=== PATIENT | female | born 1990 | race Caucasian/White ===

== ENCOUNTER 2016-05-12 11:04 | Emergency (ER) | payer OTHER, SELFPAY ==
--- NOTE | 2016-05-12 12:26 | EDDOCDS ---
Nurse's Notes [facility] Name: Virginia Pandey Age: 25 yrs Sex: Female : 1990 Arrival Date: 05/12/2016 Time: 11:04 Bed D1 Private MD: No Pcp Diagnosis: Acute frontal sinusitis Presentation: 05/12 11:18 Presenting complaint: Patient states: cough, cold, sore throat, headache since Friday. rs3 has not taken any medication. Adult Sepsis Screening: The patient does not have new or worsening altered mentation. Patient's respiratory rate is less than 22. Systolic blood pressure is greater than 100. Patient has a qSOFA score of 0- Negative Sepsis Screen. Suicide/Homicide risk assessment- the patient denies having any suicidal and/or homicidal ideations and does not present with any other emotional, behavioral or mental health complaints. 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 Transition of care: patient was not received from another setting of care. 11:18 Acuity: DEAN Level 4 rs3 11:18 Method Of Arrival: Walkin/Carried/Asstd rs3 Triage Assessment: 11:22 General: Appears in no apparent distress. Pain: Location: headache, sore throat. 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 risperidone 1 mg oral tab 1 tab once daily 3 weeks ago - PMHx: ADHD; - PSHx: none; - Social history: Smoking status: Patient states was never smoker of tobacco. No barriers to communication noted, The patient speaks fluent Zambian. - Family history: Not pertinent. - : The pt / caregiver states he / she is not on anticoagulants. Home medication list is obtained from the patient. - Exposure Risk Screening:: None identified. Screenin:22 Screening information is obtained from the patient. Fall risk: No risks identified. ms18 Assistance ADL's: requires no assistance with activities of daily living. Abuse/DV Screen: The patient / caregiver reports he/she is: not in a situation that causes fear, pain or injury. Nutritional screening: No deficits noted. Advance Directives: There is no living will. home support is adequate. Assessment: 12:22 General: Appears in no apparent distress, comfortable, Behavior is appropriate for age, ms18 cooperative. Pain: Noted to be pt sitting comfortably on a chair at this time. Neurological: Level of Consciousness is awake, alert, obeys commands, Oriented to person, place, time. EENT: Reports nasal congestion. Respiratory: Airway is patent Respiratory effort is even, unlabored. GI: Abdomen is non- distended. Derm: Skin is pink, warm & dry. Vital Signs: 11:07 BP 135 / 72 RA Sitting (auto/reg); Pulse 90; Resp 18; Temp 98.8(O); Pulse Ox 97% ; jrd Weight 87.54 kg; Height 5 ft. 6 in. (167.64 cm); Pain 8/10; 11:07 Body Mass Index 31.15 (87.54 kg, 167.64 cm) [facility] Vitals: 11:07 Log In Time: May 12, 2016 at 10:43. [facility] ED Course: 11:06 Patient visited by Balbir Child PCA. jrd 11:06 Patient moved to Waiting jrd 11:07 No Pcp is Private Physician. jrd 11:08 Patient visited by Balbir Child PCA. jrd 11:08 Patient moved to Pre RCE jrd 11:20 Triage Initiated rs3 11:54 Patient moved to D1 ms18 12:00 Young Machado PA-C is PHCP. cc10 12:00 Phoebe Swanson MD is Attending Physician. cc10 12:00 Patient visited by Young Machado PA-C. cc10 12:00 Patient visited by Young Machado PA-C. cc10 12:22 Patient visited by Cathie Hwang RN. ms18 12:22 The patient / caregiver is instructed regarding the plan of care and ED course. Patient ms18 has correct armband on for positive identification. Property :Personal belongings accompany Pt. 12:22 No IV's were initiated during this patient's visit. No procedures done that require ms18 assistance. Order Results: There are currently no results for this order. Outcome: 12:15 Discharge ordered by Provider. cc10 12:22 Discharge Assessment: Patient awake, alert and oriented x 3. No cognitive and/or ms18 functional deficits noted. Patient verbalized understanding of disposition instructions. patient administered narcotics - no. The following High Risk Discharge criteria are identified: None. Discharged to home ambulatory. Condition: good Condition: stable. Discharge instructions given to patient, Instructed on discharge instructions, follow up and referral plans. medication usage, Demonstrated understanding of instructions, medications, Pt was receptive of discharge instructions/ teaching. Prescriptions given X 3. No special radiology studies were completed. 12:25 Patient left the ED. ms18 Signatures: Yashira JallohRN RN rs3 Young Machado, PA-C PA-C cc10 Cathie Hwang RN RN ms18 Balbir Child, SALVATORE STRAIGHTENING MACHINE OPERATOR jrd MTDD
--- NOTE | 2016-05-12 12:26 | EDDOCDS ---
Physician Documentation [facility] Name: Virginia Pandey Age: 25 yrs Sex: Female : 1990 Arrival Date: 05/12/2016 Time: 11:04 Bed D1 Private MD: No Pcp Disposition: 05/12/16 12:15 Discharged to Home/Self Care. Impression: Acute frontal sinusitis. - Condition is Stable. - Discharge Instructions: Sinus Headache. - Prescriptions for Augmentin 875- 125 mg Oral Tablet - take 1 tablet by ORAL route every 12 hours for 10 days; 20 tablet. Prednisone 20 mg Oral Tablet - take 1 tablet by ORAL route once daily for 5 days; 5 tablet. Afrin (oxymetazoline) 0.05 % Nasal Aerosol, [place] - spray 2 sprays by INTRANASAL route 2 times per day use for 5 days ONLY; 1 Container. - Medication Reconciliation form. - Follow up: Emergency Department; When: As needed. Follow up: Private Physician; When: Call to arrange an appointment; Reason: Wound/Symptom Recheck, Recheck today's complaints, Worsening of conditions, Continuance of care. - Problem is an ongoing problem. - Symptoms are unchanged. Historical: - Allergies: no known allergies; - Home Meds: 1. risperidone 1 mg oral tab 1 tab once daily 3 weeks ago - PMHx: ADHD; - PSHx: none; - Social history: Smoking status: Patient states was never smoker of tobacco. No barriers to communication noted, The patient speaks fluent Monegasque. - Family history: Not pertinent. - : The pt / caregiver states he / she is not on anticoagulants. Home medication list is obtained from the patient. - Exposure Risk Screening:: None identified. 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 6 in. (167.64 cm); Pain 8/10; 11:07 Body Mass Index 31.15 (87.54 kg, 167.64 cm) jrd Signatures: Yashira Jalloh RN RN rs3 [place], Young, PA-C PA-C cc10 Cathie Hwang,RN RN ms18 MTDD
--- NOTE | 2016-05-14 13:27 | EDDOCDS ---
Nurse's Notes [facility] Name: Virginia Pandey Age: 25 yrs Sex: Female : 1990 Arrival Date: 05/12/2016 Time: 11:04 Bed D1 Private MD: No Pcp Diagnosis: Acute frontal sinusitis Presentation: 05/12 11:18 Presenting complaint: Patient states: cough, cold, sore throat, headache since Friday. rs3 has not taken any medication. Adult Sepsis Screening: The patient does not have new or worsening altered mentation. Patient's respiratory rate is less than 22. Systolic blood pressure is greater than 100. Patient has a qSOFA score of 0- Negative Sepsis Screen. Suicide/Homicide risk assessment- the patient denies having any suicidal and/or homicidal ideations and does not present with any other emotional, behavioral or mental health complaints. 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 Transition of care: patient was not received from another setting of care. 11:18 Acuity: DEAN Level 4 rs3 11:18 Method Of Arrival: Walkin/Carried/Asstd rs3 Triage Assessment: 11:22 General: Appears in no apparent distress. Pain: Location: headache, sore throat. 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 risperidone 1 mg oral tab 1 tab once daily 3 weeks ago - PMHx: ADHD; - PSHx: none; - Social history: Smoking status: Patient states was never smoker of tobacco. No barriers to communication noted, The patient speaks fluent [place]. - Family history: Not pertinent. - : The pt / caregiver states he / she is not on anticoagulants. Home medication list is obtained from the patient. - Exposure Risk Screening:: None identified. Screenin:22 Screening information is obtained from the patient. Fall risk: No risks identified. ms18 Assistance ADL's: requires no assistance with activities of daily living. Abuse/DV Screen: The patient / caregiver reports he/she is: not in a situation that causes fear, pain or injury. Nutritional screening: No deficits noted. Advance Directives: There is no living will. home support is adequate. Assessment: 12:22 General: Appears in no apparent distress, comfortable, Behavior is appropriate for age, ms18 cooperative. Pain: Noted to be pt sitting comfortably on a chair at this time. Neurological: Level of Consciousness is awake, alert, obeys commands, Oriented to person, place, time. EENT: Reports nasal congestion. Respiratory: Airway is patent Respiratory effort is even, unlabored. GI: Abdomen is non- distended. Derm: Skin is pink, warm & dry. Vital Signs: 11:07 BP 135 / 72 RA Sitting (auto/reg); Pulse 90; Resp 18; Temp 98.8(O); Pulse Ox 97% ; jrd Weight 87.54 kg; Height 5 ft. 6 in. (167.64 cm); Pain 8/10; 11:07 Body Mass Index 31.15 (87.54 kg, 167.64 cm) [facility] Vitals: 11:07 Log In Time: May 12, 2016 at 10:43. [facility] ED Course: 11:06 Patient visited by Balbir Child PCA. jrd 11:06 Patient moved to Waiting jrd 11:07 No Pcp is Private Physician. jrd 11:08 Patient visited by Balbir Child PCA. jrd 11:08 Patient moved to Pre RCE jrd 11:20 Triage Initiated rs3 11:54 Patient moved to D1 ms18 12:00 Young Machado PA-C is PHCP. cc10 12:00 Phoebe Swanson MD is Attending Physician. cc10 12:00 Patient visited by Young Machado PA-C. cc10 12:00 Patient visited by Young Machado PA-C. cc10 12:22 Patient visited by Cathie Hwang RN. ms18 12:22 The patient / caregiver is instructed regarding the plan of care and ED course. Patient ms18 has correct armband on for positive identification. Property :Personal belongings accompany Pt. 12:22 No IV's were initiated during this patient's visit. No procedures done that require ms18 assistance. 15:22 [facility] Payment Agreement was scanned into [employer] and attached to record. jp5 20:46 T-Sheet-- Draft Copy was scanned into [employer] and attached to record. klr Order Results: There are currently no results for this order. Outcome: 12:15 Discharge ordered by Provider. cc10 12:22 Discharge Assessment: Patient awake, alert and oriented x 3. No cognitive and/or ms18 functional deficits noted. Patient verbalized understanding of disposition instructions. patient administered narcotics - no. The following High Risk Discharge criteria are identified: None. Discharged to home ambulatory. Condition: good Condition: stable. Discharge instructions given to patient, Instructed on discharge instructions, follow up and referral plans. medication usage, Demonstrated understanding of instructions, medications, Pt was receptive of discharge instructions/ teaching. Prescriptions given X 3. No special radiology studies were completed. 12:25 Patient left the ED. ms18 Signatures: Yashira Jalloh,RN RN rs3 Young Machado, PA-C PA-C cc10 Cathie Hwang RN RN ms18 Balbir Child, PHOTO MANAGER PHOTO MANAGER Kin Machado jp5 Ya Brown Chart Complete MTDCaio
--- NOTE | 2016-05-14 13:27 | EDDOCDS ---
Physician Documentation [facility] Name: Virginia Pandey Age: 25 yrs Sex: Female : 1990 Arrival Date: 05/12/2016 Time: 11:04 Bed D1 Private MD: No Pcp Disposition: 05/12/16 12:15 Discharged to Home/Self Care. Impression: Acute frontal sinusitis. - Condition is Stable. - Discharge Instructions: Sinus Headache. - Prescriptions for Augmentin 875- 125 mg Oral Tablet - take 1 tablet by ORAL route every 12 hours for 10 days; 20 tablet. Prednisone 20 mg Oral Tablet - take 1 tablet by ORAL route once daily for 5 days; 5 tablet. Afrin (oxymetazoline) 0.05 % Nasal Aerosol, [place] - spray 2 sprays by INTRANASAL route 2 times per day use for 5 days ONLY; 1 Container. - Medication Reconciliation form. - Follow up: Emergency Department; When: As needed. Follow up: Private Physician; When: Call to arrange an appointment; Reason: Wound/Symptom Recheck, Recheck today's complaints, Worsening of conditions, Continuance of care. - Problem is an ongoing problem. - Symptoms are unchanged. Historical: - Allergies: no known allergies; - Home Meds: 1. risperidone 1 mg oral tab 1 tab once daily 3 weeks ago - PMHx: ADHD; - PSHx: none; - Social history: Smoking status: Patient states was never smoker of tobacco. No barriers to communication noted, The patient speaks fluent [place]guillan. - Family history: Not pertinent. - : The pt / caregiver states he / she is not on anticoagulants. Home medication list is obtained from the patient. - Exposure Risk Screening:: None identified. 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 6 in. (167.64 cm); Pain 8/10; 11:07 Body Mass Index 31.15 (87.54 kg, 167.64 cm) jrd MDM: 15:22 [facility] Payment Agreement was scanned into [employer] and attached to record. jp5 15:22 Financial registration complete. jp5 20:46 T-Sheet-- Draft Copy was scanned into [employer] and attached to record. klr Signatures: Yashira JallohRN RN rs3 Young Machado, AALIYAHC PAMukeshC cc10 Cathie Hwang RN RN ms18 VargheseYvetteugo jp5 Ya Brown klr The chart was reviewed and I authenticate all verbal orders and agree with the evaluation and treatment provided.Attachments: 15:22 [facility] Payment Agreement jp5 20:46 T-Sheet-- Draft Copy klr Chart Complete MTDD
--- NOTE | 2016-05-14 13:27 | EDDOCDS ---
Physician Documentation [facility] Name: Virginia Pandey Age: 25 yrs Sex: Female : 1990 Arrival Date: 05/12/2016 Time: 11:04 Bed D1 Private MD: No Pcp Disposition: 05/12/16 12:15 Discharged to Home/Self Care. Impression: Acute frontal sinusitis. - Condition is Stable. - Discharge Instructions: Sinus Headache. - Prescriptions for Augmentin 875- 125 mg Oral Tablet - take 1 tablet by ORAL route every 12 hours for 10 days; 20 tablet. Prednisone 20 mg Oral Tablet - take 1 tablet by ORAL route once daily for 5 days; 5 tablet. Afrin (oxymetazoline) 0.05 % Nasal Aerosol, [place] - spray 2 sprays by INTRANASAL route 2 times per day use for 5 days ONLY; 1 Container. - Medication Reconciliation form. - Follow up: Emergency Department; When: As needed. Follow up: Private Physician; When: Call to arrange an appointment; Reason: Wound/Symptom Recheck, Recheck today's complaints, Worsening of conditions, Continuance of care. - Problem is an ongoing problem. - Symptoms are unchanged. Historical: - Allergies: no known allergies; - Home Meds: 1. risperidone 1 mg oral tab 1 tab once daily 3 weeks ago - PMHx: ADHD; - PSHx: none; - Social history: Smoking status: Patient states was never smoker of tobacco. No barriers to communication noted, The patient speaks fluent [place]. - Family history: Not pertinent. - : The pt / caregiver states he / she is not on anticoagulants. Home medication list is obtained from the patient. - Exposure Risk Screening:: None identified. 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 6 in. (167.64 cm); Pain 8/10; 11:07 Body Mass Index 31.15 (87.54 kg, 167.64 cm) jrd MDM: 15:22 [facility] Payment Agreement was scanned into [employer] and attached to record. jp5 15:22 Financial registration complete. jp5 20:46 T-Sheet-- Draft Copy was scanned into [employer] and attached to record. klr Signatures: Yashira JallohRN RN rs3 Young Machado, AALIYAHC PAMukeshC cc10 Cathie Hwang RN RN ms18 VargheseYvetteugo jp5 Ya Brown klr The chart was reviewed and I authenticate all verbal orders and agree with the evaluation and treatment provided.Attachments: 15:22 [facility] Payment Agreement jp5 20:46 T-Sheet-- Draft Copy klr Chart Complete MTDD
== END 2016-05-12 12:25 | disposition home or self-care (01) ==
LOC: M ED 11:04
DX: J01.90 Acute sinusitis, unspecified (principal); H92.03 Otalgia, bilateral; F90.9 Attention-deficit hyperactivity disorder, unspecified type

== ENCOUNTER 2017-03-29 10:40 | Emergency (ER) | payer OTHER ==
[~2017-03-29] VITALS: Ht 165.1 cm; Wt 84.1 kg
[2017-03-29 10:40] VITALS: BP 127/75
[2017-03-29] MEDS ORDERED: ZITHTAB PO (11:21)
[2017-03-29] MEDS ORDERED: TESS100C PO (11:21)
== END 2017-03-29 11:33 | disposition home or self-care (01) ==
LOC: M ED 10:40
DX: J20.9 Acute bronchitis, unspecified (principal); F99 Mental disorder, not otherwise specified

== ENCOUNTER → 2017-05-16 | Outpatient (CLI) | payer OTHER ==
[2017-05-16 10:45] LABS: BASO # 0.1 10^3/uL (0.0-0.2); EOS % 0.8 % (0.0-3.0); HEMATOCRIT 31.8 % (36.0-47.0); HEMOGLOBIN 8.9 g/dl (12.0-16.0); IMMATURE GRANULOCYTE % 0.2 % (0-0); LYMPH # 1.7 10^3/uL (1.5-6.5); LYMPH % 31.9 % (24.0-44.0); MEAN CORPUSCULAR HEMOGLOBIN 19.9 pg (27.0-33.0); MEAN CORPUSCULAR VOLUME 71.1 fl (80.0-96.0); MONO # 0.5 10^3/uL (0.0-0.8); MONO % 10.3 % (0.0-5.0); NEUTROPHILS # 2.9 10^3/uL (1.8-7.7); NEUTROPHILS % 55.8 % (36.0-66.0); PLATELET COUNT, AUTOMATED 338 10^3/uL (150-450); RED BLOOD COUNT 4.47 10^6/uL (4.00-5.40); RED CELL DISTRIBUTION WIDTH 17.6 % (11.5-14.5); WHITE BLOOD COUNT 5.2 10^3/uL (4.0-10.0)
[2017-05-16 10:57] LABS: ESTIMATED AVERAGE GLUCOSE 105 MG/DL (60-110); HEMOGLOBIN A1c 5.3 %
[2017-05-16 11:16] LABS: ALBUMIN 4.6 GM/DL (3.2-5.2); ALBUMIN/GLOBULIN RATIO 1.18 (1.00-1.93); ALKALINE PHOSPHATASE 78 U/L (45-117); ALT/SGPT 14 U/L (12-78); ANION GAP 6 MEQ/L (8-16); AST/SGOT 14 U/L (7-37); BILIRUBIN,TOTAL 0.5 MG/DL (0.2-1.0); BLOOD UREA NITROGEN 8 MG/DL (7-18); CALCIUM LEVEL 8.9 MG/DL (8.5-10.1); CARBON DIOXIDE LEVEL 27 MEQ/L (21-32); CHLORIDE LEVEL 103 MEQ/L (98-107); CHOLESTEROL LEVEL 165 MG/DL (<200); CHOLESTEROL RISK RATIO 3.367 (<5); FERRITIN 3 NG/ML (8-252); GLOMERULAR FILTRATION RATE > 60.0 (>60); GLUCOSE, FASTING 100 MG/DL (70-100); HDL CHOLESTEROL 49 MG/DL (>40); IRON (FE) 27 UG/DL (50-170); NON-HDL-C 116 MG/DL; POTASSIUM SERUM 3.9 MEQ/L (3.5-5.1); SODIUM LEVEL 136 MEQ/L (136-145); TOTAL PROTEIN 8.5 GM/DL (6.4-8.2); TRIGLYCERIDES LEVEL 95 MG/DL (<150)
[2017-05-16 13:46] LABS: HIV 1&2 SCREEN CENTAUR NEGATIVE (NEGATIVE)
[2017-05-16 14:17] LABS: TOTAL 25(OH) VITAMIN D 20.5 NG/ML (30.0-100.0)
[2017-05-16 14:18] LABS: HEPATITIS B SURFACE ANTIBODY NEGATIVE (POSITIVE)
== END ==
LOC: M LAB 09:16
DX: Z13.9 Encounter for screening, unspecified (principal); J98.4 Other disorders of lung
CPT/HCPCS: 71046

== ENCOUNTER → 2017-05-20 | Outpatient (REF) | payer OTHER, MEDICAID ==
[2017-05-21 15:05] LABS: CHLAMYDIA DNA AMPLIFICATION NEGATIVE (NEGATIVE); GC DNA AMPLIFICATION NEGATIVE (NEGATIVE)
== END ==
LOC: M LAB REF 17:25
DX: Z13.9 Encounter for screening, unspecified (principal)

== ENCOUNTER → 2017-05-27 | Outpatient (CLI) | payer OTHER, MEDICAID | LOC: M EKG 08:23 | DX: R07.9 Chest pain, unspecified (principal) | CPT/HCPCS: 93005 ==

== ENCOUNTER → 2017-05-30 | Outpatient (CLI) | payer OTHER ==
[2017-05-30 14:55] LABS: BASO # 0.1 10^3/uL (0.0-0.2); EOS % 0.8 % (0.0-3.0); HEMATOCRIT 30.2 % (36.0-47.0); HEMOGLOBIN 8.5 g/dl (12.0-16.0); IMMATURE GRANULOCYTE % 0.2 % (0-3.0); LYMPH # 1.8 10^3/uL (1.5-6.5); MEAN CORPUSCULAR HEMOGLOBIN 20.3 pg (27.0-33.0); MEAN CORPUSCULAR HGB CONC 28.1 g/dl (32.0-36.5); MEAN CORPUSCULAR VOLUME 72.1 fl (80.0-96.0); MONO # 0.5 10^3/uL (0.0-0.8); MONO % 10.1 % (0.0-5.0); NEUTROPHILS # 2.8 10^3/uL (1.8-7.7); NEUTROPHILS % 53.9 % (36.0-66.0); PLATELET COUNT, AUTOMATED 364 10^3/uL (150-450); RED BLOOD COUNT 4.19 10^6/uL (4.00-5.40); RED CELL DISTRIBUTION WIDTH 17.4 % (11.5-14.5); WHITE BLOOD COUNT 5.2 10^3/uL (4.0-10.0)
[2017-05-30 15:25] LABS: ALBUMIN 4.3 GM/DL (3.2-5.2); ALBUMIN/GLOBULIN RATIO 1.08 (1.00-1.93); ALKALINE PHOSPHATASE 90 U/L (45-117); ALT/SGPT 17 U/L (12-78); ANION GAP 7 MEQ/L (8-16); AST/SGOT 19 U/L (7-37); BILIRUBIN,TOTAL 0.3 MG/DL (0.2-1.0); BLOOD UREA NITROGEN 8 MG/DL (7-18); CALCIUM LEVEL 9.1 MG/DL (8.5-10.1); CARBON DIOXIDE LEVEL 28 MEQ/L (21-32); CHLORIDE LEVEL 103 MEQ/L (98-107); CREATININE FOR GFR 0.72 MG/DL (0.55-1.30); GLOMERULAR FILTRATION RATE > 60.0 (>60); GLUCOSE, FASTING 84 MG/DL (70-100); SODIUM LEVEL 138 MEQ/L (136-145); TOTAL PROTEIN 8.3 GM/DL (6.4-8.2)
== END ==
LOC: M LAB 14:36
DX: F34.1 Dysthymic disorder (principal)
CPT/HCPCS: 80053

== ENCOUNTER 2017-08-25 20:25 | Emergency (ER) | payer OTHER ==
[2017-08-25] MEDS: diphenhydrAMINE INJ 50MG/ML VIAL (J1200) IV (23:07)
[2017-08-25] MEDS: methylPREDNISolone INJ 125 MG/2 ML VIAL (J2930) IV (23:07)
[2017-08-25] MEDS: NS 1,000 ML IV (23:07)
[2017-08-25] MEDS: FAMOTIDINE IV BAG 20 MG in APPROPRIATE DILUENT 1 EA IV (23:07)
== END 2017-08-26 00:13 | disposition home or self-care (01) ==
LOC: M ED 08-26 00:13
DX: T78.40XA Allergy, unspecified, initial encounter (principal); Y92.9 Unspecified place or not applicable; Y93.9 Activity, unspecified
CPT/HCPCS: J1200

== ENCOUNTER 2017-09-02 18:34 | Emergency (ER) | payer OTHER ==
[2017-09-02] MEDS: CEPHALEXIN 500 MG CAP PO (21:12)
[2017-09-02] MEDS: ANUSOL HC CREAM 30GM TOP (21:15)
== END 2017-09-02 21:30 | disposition home or self-care (01) ==
LOC: M ED 18:34
DX: L03.011 Cellulitis of right finger (principal); L30.9 Dermatitis, unspecified; R51 Headache; F90.9 Attention-deficit hyperactivity disorder, unspecified type; Z79.899 Other long term (current) drug therapy
CPT/HCPCS: 99283

== ENCOUNTER 2017-10-01 20:13 | Emergency (ER) | payer OTHER ==
[2017-10-01] MEDS: KETOROLAC 30 MG/ML VIAL (J1885) IV (21:21)
[2017-10-01] MEDS: METOCLOPRAMIDE INJ 10MG/2ML VIAL (J2765) IV (21:21)
[2017-10-01] MEDS: diphenhydrAMINE INJ 50MG/ML VIAL (J1200) IV (21:21)
[2017-10-01] MEDS: NS 1,000 ML IV (21:21)
[2017-10-01 21:22] LABS: BASO % 0.4 % (0.0-1.0); HEMOGLOBIN 7.6 g/dl (12.0-15.5); IMMATURE GRANULOCYTE % 0.4 % (0-3.0); LYMPH % 9.5 % (24.0-44.0); MEAN CORPUSCULAR HEMOGLOBIN 19.5 pg (27.0-33.0); MEAN CORPUSCULAR HGB CONC 28.1 g/dl (32.0-36.5); MEAN CORPUSCULAR VOLUME 69.4 fl (80.0-96.0); MONO # 0.4 10^3/uL (0.0-0.8); MONO % 3.6 % (0.0-5.0); NEUTROPHILS # 9.3 10^3/uL (1.8-7.7); NEUTROPHILS % 86.1 % (36.0-66.0); PLATELET COUNT, AUTOMATED 339 10^3/uL (150-450); RED BLOOD COUNT 3.89 10^6/uL (4.00-5.40); RED CELL DISTRIBUTION WIDTH 17.5 % (11.5-14.5); WHITE BLOOD COUNT 10.8 10^3/uL (4.0-10.0)
[2017-10-01 21:51] LABS: ANION GAP 8 MEQ/L (8-16); BLOOD UREA NITROGEN 8 MG/DL (7-18); C REACTIVE PROTEIN QUANTITATIV < 0.30 MG/DL (0.00-0.30); CARBON DIOXIDE LEVEL 28 MEQ/L (21-32); CHLORIDE LEVEL 104 MEQ/L (98-107); CREATININE FOR GFR 0.72 MG/DL (0.55-1.30); GLOMERULAR FILTRATION RATE > 60.0 (>60); GLUCOSE, FASTING 110 MG/DL (70-100); POTASSIUM SERUM 3.9 MEQ/L (3.5-5.1); SODIUM LEVEL 140 MEQ/L (136-145)
[2017-10-01 21:58] LABS: ERYTHROCYTE SEDIMENTATION RATE 41 mm/hr (0-20)
== END 2017-10-01 22:38 | disposition home or self-care (01) ==
LOC: M ED 20:13
DX: G43.909 Migraine, unspecified, not intractable, without status migrainosus (principal); D64.9 Anemia, unspecified; F90.9 Attention-deficit hyperactivity disorder, unspecified type; Z79.899 Other long term (current) drug therapy
CPT/HCPCS: J1200

== ENCOUNTER 2017-11-10 13:50 | Emergency (ER) | payer OTHER ==
[2017-11-10] MEDS: KETOROLAC 30 MG/ML VIAL (J1885) IV (15:30)
[2017-11-10] MEDS: NS 1,000 ML IV (15:30)
[2017-11-10] MEDS: METOCLOPRAMIDE INJ 10MG/2ML VIAL (J2765) IV (15:30)
[2017-11-10] MEDS: diphenhydrAMINE INJ 50MG/ML VIAL (J1200) IV (15:30)
[2017-11-10 15:59] LABS: HEMATOCRIT 30.2 % (36.0-47.0); HEMOGLOBIN 8.4 g/dl (12.0-15.5); MEAN CORPUSCULAR HEMOGLOBIN 20.2 pg (27.0-33.0); MEAN CORPUSCULAR HGB CONC 27.8 g/dl (32.0-36.5); MEAN CORPUSCULAR VOLUME 72.6 fl (80.0-96.0); PLATELET COUNT, AUTOMATED 351 10^3/uL (150-450); RED BLOOD COUNT 4.16 10^6/uL (4.00-5.40); RED CELL DISTRIBUTION WIDTH 18.6 % (11.5-14.5); WHITE BLOOD COUNT 7.8 10^3/uL (4.0-10.0)
== END 2017-11-10 16:48 | disposition left against medical advice (07) ==
LOC: M ED 13:50
DX: G43.909 Migraine, unspecified, not intractable, without status migrainosus (principal); D64.9 Anemia, unspecified; F90.9 Attention-deficit hyperactivity disorder, unspecified type
CPT/HCPCS: J1200

== ENCOUNTER 2017-11-11 18:23 | Emergency (ER) | payer OTHER ==
[2017-11-11 20:06] LABS: KETONE, URINE AUTO RFX NEGATIVE (NEGATIVE); LEUKOCYTE ESTERASE UR AUTO RFX NEGATIVE (NEGATIVE); MUCUS, URINE RFX SMALL (NEGATIVE); NITRITE, URINE AUTO RFX NEGATIVE (NEGATIVE); RBC, URINE AUTO RFX TNTC /HPF (0-3); SPECIFIC GRAVITY UR AUTO RFX 1.015 (1.002-1.035); SQUAM EPITHELIAL CELL UR AURFX 1 /HPF (0-6); WBC, URINE AUTO RFX 1 /HPF (0-3)
[2017-11-11] MEDS: ONDANSETRON 4MG/2ML VIAL (J2405) IV (20:15)
[2017-11-11] MEDS: KETOROLAC 30 MG/ML VIAL (J1885) IV (20:15)
[2017-11-11] MEDS: NS 1,000 ML IV (20:16)
[2017-11-11 20:30] LABS: BASO % 0.4 % (0.0-1.0); HEMATOCRIT 26.3 % (36.0-47.0); HEMOGLOBIN 7.5 g/dl (12.0-15.5); IMMATURE GRANULOCYTE % 0.4 % (0-3.0); LYMPH # 1.2 10^3/uL (1.5-6.5); LYMPH % 12.3 % (24.0-44.0); MEAN CORPUSCULAR HEMOGLOBIN 20.2 pg (27.0-33.0); MEAN CORPUSCULAR HGB CONC 28.5 g/dl (32.0-36.5); MEAN CORPUSCULAR VOLUME 70.7 fl (80.0-96.0); MONO # 0.7 10^3/uL (0.0-0.8); MONO % 7.7 % (0.0-5.0); NEUTROPHILS # 7.4 10^3/uL (1.8-7.7); NEUTROPHILS % 79.2 % (36.0-66.0); PLATELET COUNT, AUTOMATED 341 10^3/uL (150-450); RED BLOOD COUNT 3.72 10^6/uL (4.00-5.40); RED CELL DISTRIBUTION WIDTH 18.3 % (11.5-14.5); WHITE BLOOD COUNT 9.3 10^3/uL (4.0-10.0)
[2017-11-11 20:51] LABS: ALBUMIN 3.7 GM/DL (3.2-5.2); ALBUMIN/GLOBULIN RATIO 0.95 (1.00-1.93); ALKALINE PHOSPHATASE 77 U/L (45-117); ALT/SGPT 14 U/L (12-78); ANION GAP 8 MEQ/L (8-16); AST/SGOT 13 U/L (7-37); BILIRUBIN,DIRECT 0.1 MG/DL (0.0-0.2); BILIRUBIN,TOTAL 0.6 MG/DL (0.2-1.0); BLOOD UREA NITROGEN 5 MG/DL (7-18); CALCIUM LEVEL 8.7 MG/DL (8.5-10.1); CARBON DIOXIDE LEVEL 24 MEQ/L (21-32); CHLORIDE LEVEL 109 MEQ/L (98-107); CREATININE FOR GFR 0.74 MG/DL (0.55-1.30); GLOMERULAR FILTRATION RATE > 60.0 (>60); GLUCOSE, FASTING 90 MG/DL (70-100); POTASSIUM SERUM 3.9 MEQ/L (3.5-5.1); SODIUM LEVEL 141 MEQ/L (136-145); TOTAL PROTEIN 7.6 GM/DL (6.4-8.2)
== END 2017-11-11 21:19 | disposition left against medical advice (07) ==
LOC: M ED 18:23
DX: N93.9 Abnormal uterine and vaginal bleeding, unspecified (principal); D64.9 Anemia, unspecified; R10.9 Unspecified abdominal pain; R11.2 Nausea with vomiting, unspecified; Z53.21 Procedure and treatment not carried out due to patient leaving prior to being seen by health care provider; G43.909 Migraine, unspecified, not intractable, without status migrainosus; Z79.899 Other long term (current) drug therapy
CPT/HCPCS: J2405

== ENCOUNTER 2017-11-15 18:21 | Emergency (ER) | payer OTHER ==
[2017-11-15] MEDS: NS 1,000 ML IV (19:15)
[2017-11-15 19:24] LABS: BASO % 0.7 % (0.0-1.0); EOS # 0.1 10^3/uL (0.0-0.50); HEMATOCRIT 27.1 % (36.0-47.0); HEMOGLOBIN 7.6 g/dl (12.0-15.5); IMMATURE GRANULOCYTE % 0.3 % (0-3.0); LYMPH # 1.6 10^3/uL (1.5-6.5); MEAN CORPUSCULAR HEMOGLOBIN 20.1 pg (27.0-33.0); MEAN CORPUSCULAR VOLUME 71.5 fl (80.0-96.0); MONO # 0.5 10^3/uL (0.0-0.8); NEUTROPHILS # 3.6 10^3/uL (1.8-7.7); PLATELET COUNT, AUTOMATED 382 10^3/uL (150-450); RED BLOOD COUNT 3.79 10^6/uL (4.00-5.40); RED CELL DISTRIBUTION WIDTH 18.5 % (11.5-14.5); WHITE BLOOD COUNT 5.8 10^3/uL (4.0-10.0)
[2017-11-15 19:53] LABS: ALBUMIN 3.7 GM/DL (3.2-5.2); ALBUMIN/GLOBULIN RATIO 0.86 (1.00-1.93); ALKALINE PHOSPHATASE 76 U/L (45-117); ALT/SGPT 15 U/L (12-78); ANION GAP 7 MEQ/L (8-16); AST/SGOT 16 U/L (7-37); BILIRUBIN,DIRECT < 0.1 MG/DL (0.0-0.2); BILIRUBIN,TOTAL 0.3 MG/DL (0.2-1.0); BLOOD UREA NITROGEN 7 MG/DL (7-18); CALCIUM LEVEL 8.9 MG/DL (8.5-10.1); CARBON DIOXIDE LEVEL 25 MEQ/L (21-32); CHLORIDE LEVEL 109 MEQ/L (98-107); GLOMERULAR FILTRATION RATE > 60.0 (>60); GLUCOSE, FASTING 84 MG/DL (70-100); LIPASE 100 U/L (73-393); POTASSIUM SERUM 3.9 MEQ/L (3.5-5.1); SODIUM LEVEL 141 MEQ/L (136-145)
[2017-11-15 20:50] LABS: CONTROL LINE UCG INT CTR LINE PRESENT; URINE PREG TEST NEGATIVE (NEGATIVE)
[2017-11-15 20:52] LABS: KETONE, URINE AUTO RFX NEGATIVE (NEGATIVE); LEUKOCYTE ESTERASE UR AUTO RFX 2+ (NEGATIVE); MUCUS, URINE RFX SMALL (NEGATIVE); NITRITE, URINE AUTO RFX NEGATIVE (NEGATIVE); RBC, URINE AUTO RFX 1 /HPF (0-3); SPECIFIC GRAVITY UR AUTO RFX 1.008 (1.002-1.035); SQUAM EPITHELIAL CELL UR AURFX 2 /HPF (0-6); WBC, URINE AUTO RFX 6 /HPF (0-3)
== END 2017-11-15 21:49 | disposition home or self-care (01) ==
LOC: M ED 18:21
DX: N30.90 Cystitis, unspecified without hematuria (principal); D64.9 Anemia, unspecified; F90.9 Attention-deficit hyperactivity disorder, unspecified type
CPT/HCPCS: 76705

== ENCOUNTER → 2017-12-01 | Outpatient (REF) | payer OTHER ==
[2017-12-01 13:45] LABS: FERRITIN 2 NG/ML (8-252); IRON (FE) 17 UG/DL (50-170); PERCENT SATURATION 3.7 % (13.2-45.0); TOTAL IRON BINDING CAPACITY 461 UG/DL (250-450)
== END ==
LOC: M LAB REF 13:18
DX: D50.9 Iron deficiency anemia, unspecified (principal)
CPT/HCPCS: 83550

== ENCOUNTER 2018-03-26 08:08 | Emergency (ER) | payer OTHER | END 2018-03-26 08:55 | disposition home or self-care (01) | LOC: M ED 08:08 | DX: R05 Cough (principal); G43.909 Migraine, unspecified, not intractable, without status migrainosus; G90.9 Disorder of the autonomic nervous system, unspecified | CPT/HCPCS: 99283 ==

== ENCOUNTER 2018-03-30 03:15 | Emergency (ER) | payer OTHER | END 2018-03-30 03:40 | disposition left against medical advice (07) | LOC: M ED 03:15 | DX: Z53.29 Procedure and treatment not carried out because of patient's decision for other reasons (principal) ==

== ENCOUNTER 2018-03-30 08:07 | Emergency (ER) | payer OTHER | END 2018-03-30 09:35 | disposition home or self-care (01) | LOC: M ED 08:07 | DX: J06.9 Acute upper respiratory infection, unspecified (principal); F33.9 Major depressive disorder, recurrent, unspecified; F90.9 Attention-deficit hyperactivity disorder, unspecified type | CPT/HCPCS: 71046 ==

== ENCOUNTER 2018-08-25 20:08 | Emergency (ER) | payer OTHER ==
[~2018-08-25] VITALS: Ht 165.1 cm; Wt 88.6 kg
[~2018-08-25 20:08] MED LIST: BACT800T5 PO; BENA25TA10 PO; HYDR25OI TOP; KEFL500C17 PO; PRED10TA2 PO; PRED20TA PO; PROAAER10 INH; REST15CA; REST30CA PO; STRA10CA; STRA10CA PO; SUMA25TA3; TEMA15CA2; TESS100C PO; TOPI50TA9; ZITHTAB PO
[2018-08-25] MEDS ORDERED: ONDANSETRON 4MG/2ML VIAL (J2405) IV ONE (20:45)
[2018-08-25] MEDS ORDERED: KETOROLAC 30 MG/ML VIAL (J1885) IV ONE (20:45)
[2018-08-25 21:14] LABS: BASO # 0.1 10^3/uL (0.0-0.2); BASO % 0.7 % (0.0-1.0); EOS # 0.1 10^3/uL (0.0-0.50); EOS % 1.3 % (0.0-3.0); HEMATOCRIT 34.3 % (36.0-47.0); HEMOGLOBIN 10.4 g/dl (12.0-15.5); LYMPH # 2.2 10^3/uL (1.5-6.5); LYMPH % 30.8 % (24.0-44.0); MEAN CORPUSCULAR HEMOGLOBIN 24.9 pg (27.0-33.0); MEAN CORPUSCULAR HGB CONC 30.3 g/dl (32.0-36.5); MEAN CORPUSCULAR VOLUME 82.1 fl (80.0-96.0); MONO # 0.5 10^3/uL (0.0-0.8); MONO % 6.8 % (0.0-5.0); NEUTROPHILS # 4.3 10^3/uL (1.8-7.7); PLATELET COUNT, AUTOMATED 353 10^3/uL (150-450); RED BLOOD COUNT 4.18 10^6/uL (4.00-5.40); WHITE BLOOD COUNT 7.2 10^3/uL (4.0-10.0)
[2018-08-25] MEDS ORDERED: NS 1,000 ML IV ONE (21:30)
[2018-08-25 21:39] LABS: ALBUMIN 3.6 GM/DL (3.2-5.2); ALT/SGPT 18 U/L (12-78); BILIRUBIN,DIRECT < 0.1 MG/DL (0.0-0.2); BILIRUBIN,TOTAL 0.3 MG/DL (0.2-1.0); BLOOD UREA NITROGEN 11 MG/DL (7-18); CALCIUM LEVEL 8.5 MG/DL (8.5-10.1); CARBON DIOXIDE LEVEL 30 MEQ/L (21-32); CHLORIDE LEVEL 107 MEQ/L (98-107); CREATININE FOR GFR 0.84 MG/DL (0.55-1.30); GLOMERULAR FILTRATION RATE > 60.0 (>60); GLUCOSE, FASTING 105 MG/DL (70-100); LIPASE 118 U/L (73-393); POTASSIUM SERUM 3.9 MEQ/L (3.5-5.1); SODIUM LEVEL 140 MEQ/L (136-145); TOTAL PROTEIN 7.6 GM/DL (6.4-8.2)
[2018-08-25 21:53] LABS: HCG, SERUM QUALITATIVE NEGATIVE (NEGATIVE)
--- NOTE | 2018-08-25 22:10 | REPVR ---
EXAM: US Abdomen Limited, Right Upper Quadrant EXAM DATE/TIME: 08/25/2018 9:49 PM CLINICAL HISTORY: 28 years old, female; Abdominal pain; Acute; Additional info: Ruq pain eval for cholecystitis TECHNIQUE: Imaging protocol: Real-time ultrasound of the abdomen with image documentation. Examination was focused on the right upper quadrant. COMPARISON: GALLBLADDER US 11/15/2017 7:51 PM FINDINGS: Liver: The liver is diffusely echogenic relative to the right kidney, findings consistent with steatosis. Gallbladder: Gallbladder no fluid distended. No calculi. No significant wall thickening. Common bile duct: Common bile but measures 3.7 mm. Pancreas: Visualized pancreas is unremarkable. Right kidney: Right kidney measures 12.4 x 5.1 x 4.3 cm. IMPRESSION: 1. Hepatic steatosis. 2. Gallbladder no fluid distended. No calculi. No significant wall thickening. Electronically signed by: Castillo Perez On 08/25/2018 22:09:56 PM
[2018-08-25] MEDS ORDERED: MORPHINE 4 MG/ML 1ML VIAL/SYRINGE (J2270) IV ONE (22:30)
[2018-08-25] MEDS ORDERED: ACETAMINOPHEN TAB 650MG DOSE (2X325MG) PO ONE (23:15)
[2018-08-25] MEDS ORDERED: ISOVUE-370 76% 100ML VIAL (Q9967) As Ordered ONE (23:53)
--- NOTE | 2018-08-26 00:29 | REPVR ---
EXAM: CT Abdomen and Pelvis With Contrast EXAM DATE/TIME: 08/25/2018 10:29 PM CLINICAL HISTORY: 28 years old, female; Abdominal pain; Localized; Right; Additional info: Right sided abd pain TECHNIQUE: Imaging protocol: Axial computed tomography images of the abdomen and pelvis with intravenous contrast. Coronal and sagittal reformatted images were created and reviewed. Radiation optimization: All CT scans at this facility use at least one of these dose optimization techniques: automated exposure control; mA and/or kV adjustment per patient size (includes targeted exams where dose is matched to clinical indication); or iterative reconstruction. Contrast material: ISO; Contrast volume: 100 ml; Contrast route: AC; COMPARISON: GALLBLADDER US 11/15/2017 7:51 PM FINDINGS: ABDOMEN: Liver: Unremarkable. Gallbladder and bile ducts: No radiodense gallstones. No biliary ductal dilatation. Pancreas: Unremarkable. Spleen: Unremarkable. Adrenals: Unremarkable. Kidneys and ureters: No mass. No radiodense calculi. No hydronephrosis. Stomach and bowel: No bowel wall thickening. No obstruction. No pneumatosis. Appendix: Normal. PELVIS: Bladder: Decompressed urinary bladder, which limits evaluation for wall thickening. Reproductive: Intrauterine device in place. Probable involuting right ovarian corpus luteal cyst. ABDOMEN and PELVIS: Intraperitoneal space: Trace nonspecific free pelvic fluid, likely physiologic. No organized fluid collection. No free air. Bones/joints: No acute osseous abnormality. Soft tissues: Unremarkable. Vasculature: Unremarkable. No aneurysm. Lymph nodes: Small mesenteric lymph nodes, nonspecific in appearance. No pathologically enlarged lymph nodes. IMPRESSION: 1. No CT evidence of acute intra-abdominal or pelvic pathology. 2. Additional findings, as above. Electronically signed by: Alli Malhotra On 08/26/2018 00:29:30 AM
[2018-08-26 00:54] VITALS: BP 113/61
== END 2018-08-26 01:02 | disposition home or self-care (01) ==
LOC: M ED 20:08
DX: R10.10 Upper abdominal pain, unspecified (principal); R11.2 Nausea with vomiting, unspecified; G43.909 Migraine, unspecified, not intractable, without status migrainosus
CPT/HCPCS: 74177; 76705; 80048; 80076; 81001; 83690; 84703; 85025; 85379; 93041; 96361; 96374; 96375; 99284; J1885; J2270; J2405; Q9967

== ENCOUNTER 2018-08-28 19:01 | Emergency (ER) | payer OTHER ==
[~2018-08-28] VITALS: Ht 165.1 cm; Wt 85.9 kg
[2018-08-28] MEDS ORDERED: ONDANSETRON 4MG/2ML VIAL (J2405) IV ONE (21:15)
[2018-08-28] MEDS ORDERED: PANTOPRAZOLE 40MG TAB (PROTONIX) PO ONE (21:15)
[2018-08-28] MEDS ORDERED: KETOROLAC 30 MG/ML VIAL (J1885) IV ONE (21:15)
[2018-08-28] MEDS ORDERED: NS 1,000 ML IV ONE (21:15)
[2018-08-28 22:06] LABS: BASO # 0.1 10^3/uL (0.0-0.2); BASO % 0.6 % (0.0-1.0); EOS # 0.1 10^3/uL (0.0-0.50); EOS % 0.7 % (0.0-3.0); HEMATOCRIT 33.9 % (36.0-47.0); HEMOGLOBIN 10.3 g/dl (12.0-15.5); LYMPH # 2.4 10^3/uL (1.5-6.5); LYMPH % 28.6 % (24.0-44.0); MEAN CORPUSCULAR HEMOGLOBIN 24.9 pg (27.0-33.0); MEAN CORPUSCULAR HGB CONC 30.4 g/dl (32.0-36.5); MEAN CORPUSCULAR VOLUME 81.9 fl (80.0-96.0); MONO # 0.7 10^3/uL (0.0-0.8); MONO % 8.2 % (0.0-5.0); NEUTROPHILS # 5.2 10^3/uL (1.8-7.7); NEUTROPHILS % 61.7 % (36.0-66.0); PLATELET COUNT, AUTOMATED 321 10^3/uL (150-450); RED BLOOD COUNT 4.14 10^6/uL (4.00-5.40); WHITE BLOOD COUNT 8.4 10^3/uL (4.0-10.0)
[2018-08-28] MEDS: GASTROGRAFIN SOLUTION 30ML PO SCH ×2 (22:20→23:16)
[2018-08-28 22:28] LABS: ALBUMIN 4.1 GM/DL (3.2-5.2); ALT/SGPT 14 U/L (12-78); BILIRUBIN,DIRECT < 0.1 MG/DL (0.0-0.2); BILIRUBIN,TOTAL 0.3 MG/DL (0.2-1.0); BLOOD UREA NITROGEN 7 MG/DL (7-18); CALCIUM LEVEL 9.1 MG/DL (8.5-10.1); CARBON DIOXIDE LEVEL 28 MEQ/L (21-32); CHLORIDE LEVEL 107 MEQ/L (98-107); CREATININE FOR GFR 0.72 MG/DL (0.55-1.30); GLOMERULAR FILTRATION RATE > 60.0 (>60); GLUCOSE, FASTING 78 MG/DL (70-100); LIPASE 99 U/L (73-393); POTASSIUM SERUM 3.9 MEQ/L (3.5-5.1); SODIUM LEVEL 140 MEQ/L (136-145); TOTAL PROTEIN 7.5 GM/DL (6.4-8.2)
[2018-08-28] MEDS ORDERED: ISOVUE-370 76% 100ML VIAL (Q9967) As Ordered ONE (23:04)
--- NOTE | 2018-08-28 23:35 | REPVR ---
EXAM: CT Abdomen and Pelvis With Contrast EXAM DATE/TIME: 08/28/2018 9:01 PM CLINICAL HISTORY: 28 years old, female; Abdominal pain; Localized; Right upper quadrant (ruq); Additional info: Ruq pain TECHNIQUE: Imaging protocol: Axial computed tomography images of the abdomen and pelvis with intravenous contrast. Coronal and sagittal reformatted images were created and reviewed. Radiation optimization: All CT scans at this facility use at least one of these dose optimization techniques: automated exposure control; mA and/or kV adjustment per patient size (includes targeted exams where dose is matched to clinical indication); or iterative reconstruction. Contrast material: ISO; Contrast volume: 100 ml; Contrast route: AC; COMPARISON: CT ABD/PEL W/IV CONTRAST ONLY 08/25/2018 11:49 PM FINDINGS: ABDOMEN: Liver: The liver at mid clavicular line measures 13.3 cm. Gallbladder and bile ducts: The gallbladder is somewhat contracted with no stones. Pancreas: Normal. No ductal dilation. Spleen: Normal. No splenomegaly. Adrenals: Normal. No mass. Kidneys and ureters: Small nonobstructing left renal calculus in the lower pole. Stomach and bowel: Normal. No obstruction. No mucosal thickening. Appendix: A normal appendix is seen extending into Yap's pouch. PELVIS: Bladder: Unremarkable as visualized. Reproductive: There is an IUD in the uterus. ABDOMEN and PELVIS: Intraperitoneal space: Trace fluid in the cul-de-sac which is physiologic in amount. Bones/joints: No acute fracture. No dislocation. Soft tissues: Unremarkable. Vasculature: Normal. No abdominal aortic aneurysm. Lymph nodes: Normal. No enlarged lymph nodes. IMPRESSION: 1. There has been little change from 08/25/2018. No acute interval process is identified. 2. Right upper quadrant appendix which is normal. 3. IUD in the uterus. 4. Small nonobstructing left renal calculus. Electronically signed by: Kenrick Fisher On 08/28/2018 23:35:05 PM
[2018-08-29 00:09] VITALS: BP 115/70
--- NOTE | 2018-08-29 08:49 | REP ---
Abdominal pain. COMPARISON: Multiple, the latest 03/30/2018 with older exams also reviewed. FINDINGS: The superior mediastinal structures are midline. The cardiac silhouette is unremarkable in size, shape, and position. The diaphragmatic surfaces of the lungs are regular, and the costophrenic angles are clear. The pulmonary plata are clear. The imaged osseous structures are intact. IMPRESSION: There is no acute cardiopulmonary disease. Electronically Signed by Jose Elias Calderón DO 08/29/2018 08:52 A
== END 2018-08-29 00:11 | disposition home or self-care (01) ==
LOC: M ED 19:01
DX: R10.11 Right upper quadrant pain (principal); G43.909 Migraine, unspecified, not intractable, without status migrainosus; F32.9 Major depressive disorder, single episode, unspecified; F90.9 Attention-deficit hyperactivity disorder, unspecified type; Z97.5 Presence of (intrauterine) contraceptive device; N20.0 Calculus of kidney
CPT/HCPCS: 71046; 74177; 80048; 80076; 81001; 83690; 84702; 85025; 99284; J1885; J2405; Q9963; Q9967

== ENCOUNTER 2018-10-02 22:14 | Emergency (ER) | payer OTHER ==
[~2018-10-02] VITALS: Ht 167.6 cm; Wt 81.8 kg
[2018-10-02 23:04] LABS: BASO % 0.5 % (0.0-1.0); EOS # 0.1 10^3/uL (0.0-0.50); EOS % 0.8 % (0.0-3.0); HEMATOCRIT 33.3 % (36.0-47.0); HEMOGLOBIN 10.3 g/dl (12.0-15.5); LYMPH # 2.4 10^3/uL (1.5-6.5); LYMPH % 31.6 % (24.0-44.0); MEAN CORPUSCULAR HEMOGLOBIN 25.2 pg (27.0-33.0); MEAN CORPUSCULAR HGB CONC 30.9 g/dl (32.0-36.5); MEAN CORPUSCULAR VOLUME 81.6 fl (80.0-96.0); MONO # 0.7 10^3/uL (0.0-0.8); NEUTROPHILS # 4.3 10^3/uL (1.8-7.7); NEUTROPHILS % 57.8 % (36.0-66.0); PLATELET COUNT, AUTOMATED 300 10^3/uL (150-450); RED BLOOD COUNT 4.08 10^6/uL (4.00-5.40); WHITE BLOOD COUNT 7.5 10^3/uL (4.0-10.0)
[2018-10-02 23:25] LABS: HCG, SERUM QUALITATIVE NEGATIVE (NEGATIVE)
[2018-10-02 23:33] LABS: ALBUMIN 4.2 GM/DL (3.2-5.2); ALT/SGPT 16 U/L (12-78); BILIRUBIN,DIRECT < 0.1 MG/DL (0.0-0.2); BILIRUBIN,TOTAL 0.3 MG/DL (0.2-1.0); BLOOD UREA NITROGEN 10 MG/DL (7-18); CALCIUM LEVEL 8.8 MG/DL (8.5-10.1); CARBON DIOXIDE LEVEL 27 MEQ/L (21-32); CHLORIDE LEVEL 107 MEQ/L (98-107); CREATININE FOR GFR 0.75 MG/DL (0.55-1.30); GLOMERULAR FILTRATION RATE > 60.0 (>60); GLUCOSE, FASTING 100 MG/DL (70-100); LIPASE 105 U/L (73-393); POTASSIUM SERUM 4.2 MEQ/L (3.5-5.1); SODIUM LEVEL 139 MEQ/L (136-145); TOTAL PROTEIN 8.2 GM/DL (6.4-8.2)
[2018-10-03] MEDS ORDERED: MORPHINE 4 MG/ML 1ML VIAL/SYRINGE (J2270) IV ONE (01:00)
[2018-10-03] MEDS ORDERED: GI COCKTAIL 50ML BTL(HYOSCYAMINE/MAALOX/LIDOCAINE VISCOUS)(1:3:1) PO ONE (01:00)
[2018-10-03] MEDS ORDERED: NS 1,000 ML IV ONE (01:00)
[2018-10-03] MEDS ORDERED: ONDANSETRON 4MG/2ML VIAL (J2405) IV ONE (01:00)
[2018-10-03 02:11] VITALS: BP 100/55
--- NOTE | 2018-10-03 02:44 | REPVR ---
EXAM: US Abdomen Limited, Right Upper Quadrant EXAM DATE/TIME: 10/03/2018 1:13 AM CLINICAL HISTORY: 28 years old, female; Abdominal pain; Epigastric; Additional info: Ruq pain severe after eating sub TECHNIQUE: Imaging protocol: Real-time ultrasound of the abdomen with image documentation. Examination was focused on the right upper quadrant. COMPARISON: GALLBLADDER US 08/25/2018 9:29 PM FINDINGS: Liver: There is uniform echogenicity through the liver. There may be moderate fatty infiltration of the liver. Gallbladder: There is a negative Bhandari's sign. The gallbladder wall measures less than 2 mm in thickness. There is no evidence of gallstones. Common bile duct: The common bile duct measures 4 mm and normal in size. Pancreas: The pancreas appears normal in size. Right kidney: Right kidney measures 12.8 CM in length. Normal-appearing right kidney. Inferior vena cava: Normal appearing inferior vena cava. IMPRESSION: 1. No evidence of gallstones. 2. Moderate fatty infiltration of liver. Electronically signed by: Jaime Galvez On 10/03/2018 02:43:27 AM
== END 2018-10-03 03:01 | disposition home or self-care (01) ==
LOC: M ED 22:14
DX: R10.11 Right upper quadrant pain (principal); K76.0 Fatty (change of) liver, not elsewhere classified; R11.2 Nausea with vomiting, unspecified; R51 Headache
CPT/HCPCS: 76705; 80048; 80076; 81001; 83690; 84703; 85025; 96361; 96374; 96375; 99284; J2270; J2405

== ENCOUNTER 2018-10-08 21:36 | Emergency (ER) | payer OTHER ==
[~2018-10-08] VITALS: Ht 167.6 cm; Wt 81.8 kg
[2018-10-08 21:37] VITALS: BP 130/65
[2018-10-08 23:20] LABS: BASO # 0.1 10^3/uL (0.0-0.2); BASO % 0.8 % (0.0-1.0); EOS # 0.1 10^3/uL (0.0-0.50); HEMATOCRIT 33.6 % (36.0-47.0); HEMOGLOBIN 10.1 g/dl (12.0-15.5); LYMPH # 2.6 10^3/uL (1.5-6.5); LYMPH % 29.3 % (24.0-44.0); MEAN CORPUSCULAR HEMOGLOBIN 24.5 pg (27.0-33.0); MEAN CORPUSCULAR HGB CONC 30.1 g/dl (32.0-36.5); MEAN CORPUSCULAR VOLUME 81.6 fl (80.0-96.0); MONO # 0.7 10^3/uL (0.0-0.8); MONO % 7.8 % (0.0-5.0); NEUTROPHILS # 5.4 10^3/uL (1.8-7.7); PLATELET COUNT, AUTOMATED 340 10^3/uL (150-450); RED BLOOD COUNT 4.12 10^6/uL (4.00-5.40); WHITE BLOOD COUNT 8.8 10^3/uL (4.0-10.0)
[2018-10-08 23:42] LABS: ALBUMIN 4.1 GM/DL (3.2-5.2); ALT/SGPT 13 U/L (12-78); BILIRUBIN,DIRECT < 0.1 MG/DL (0.0-0.2); BILIRUBIN,TOTAL 0.2 MG/DL (0.2-1.0); BLOOD UREA NITROGEN 13 MG/DL (7-18); CALCIUM LEVEL 9.2 MG/DL (8.5-10.1); CARBON DIOXIDE LEVEL 27 MEQ/L (21-32); CHLORIDE LEVEL 106 MEQ/L (98-107); CREATININE FOR GFR 0.84 MG/DL (0.55-1.30); GLOMERULAR FILTRATION RATE > 60.0 (>60); GLUCOSE, FASTING 91 MG/DL (70-100); POTASSIUM SERUM 4.1 MEQ/L (3.5-5.1); SODIUM LEVEL 138 MEQ/L (136-145); TOTAL PROTEIN 8.1 GM/DL (6.4-8.2)
== END 2018-10-08 23:32 | disposition left against medical advice (07) ==
LOC: M ED 21:36
DX: R10.11 Right upper quadrant pain (principal); R11.2 Nausea with vomiting, unspecified; K87 Disorders of gallbladder, biliary tract and pancreas in diseases classified elsewhere; G43.909 Migraine, unspecified, not intractable, without status migrainosus; F33.9 Major depressive disorder, recurrent, unspecified; F90.9 Attention-deficit hyperactivity disorder, unspecified type

== ENCOUNTER → 2018-11-10 | Outpatient (CLI) | payer OTHER | LOC: M LAB 10:43 | PROVIDERS: ATTEND Internal Medicine Gastroenterology | DX: R11.2 Nausea with vomiting, unspecified (principal) ==

== ENCOUNTER 2018-11-30 23:11 | Emergency (ER) | payer OTHER ==
[~2018-11-30] VITALS: Ht 165.1 cm; Wt 84.1 kg
[2018-12-01] MEDS ORDERED: DICYCLOMINE INJ 20MG/2ML (J0500) IM ONE (01:15)
[2018-12-01] MEDS ORDERED: DICY10CA13 PO (02:30)
[2018-12-01 02:34] VITALS: BP 122/66
== END 2018-12-01 02:35 | disposition home or self-care (01) ==
LOC: M ED 23:11
DX: G89.29 Other chronic pain (principal); R10.9 Unspecified abdominal pain; D50.9 Iron deficiency anemia, unspecified; F33.9 Major depressive disorder, recurrent, unspecified; F41.9 Anxiety disorder, unspecified
CPT/HCPCS: 96372; 99283; J0500

== ENCOUNTER 2018-12-22 10:51 | Day surgery (SDC) | payer OTHER ==
[~2018-12-22] VITALS: Ht 165.1 cm; Wt 81.6 kg
[~2018-12-22 10:51] MED LIST changes: +DICY10CA13 PO; +NS 1,000 ML IV ONE
[2018-12-22] MEDS ORDERED: LIDOCAINE 2% INJ 100 MG/5 ML SDV (FOR ANES.) As Ordered ONE (13:15)
[2018-12-22] MEDS ORDERED: PROPOFOL 200 MG/20 ML VIAL As Ordered ONE ×2 (13:15→13:21)
--- NOTE | 2018-12-22 13:26 | ROOR ---
Patient Name: Virginia Pandey Procedure Date: 12/22/2018 1:12 PM Date of : 1990 Age: 28 Room: [facility] Gender: Female Note Status: Finalized Procedure: Upper GI endoscopy Indications: Abdominal pain in the right upper quadrant, Nausea Providers: Vicente DIXON MD Referring MD: 1. No Referring Physician 1. No Referring Physician, Admin. Requesting Provider: Medicines: Monitored Anesthesia Care Complications: No immediate complications. Procedure: Pre-Anesthesia Assessment: - The heart rate, respiratory rate, oxygen saturations, blood pressure, adequacy of pulmonary ventilation, and response to care were monitored throughout the procedure. The Endoscope was introduced through the mouth, and advanced to the second part of duodenum. The upper GI endoscopy was accomplished without difficulty. The patient tolerated the procedure well. Findings: The esophagus was normal. The stomach was normal. The examined duodenum was normal. Impression: - Normal esophagus. - Normal stomach. - Normal examined duodenum. - No specimens collected. Recommendation: - Observe patient's clinical course. - Your gallbladder nuclear scan is normal. Gallbladder functions normally. Your lab work is normal. I suspect you have an "irritable upper GI tract", or "Non Ulcer dyspepsia" I would recommend a trial on Dicyclomine --as needed script sent to your pharmacy. Vicente Dixon MD Vicente DIXON MD 12/22/2018 1:26:22 PM Electronically signed by Vicente DIXON MD Number of Addenda: 0 Note Initiated On: 12/22/2018 1:12 PM Estimated Blood Loss: Estimated blood loss: none.
--- NOTE | 2018-12-22 13:41 | ROOR ---
Patient Name: Virginia Pandey Procedure Date: 12/22/2018 1:12 PM Date of : 1990 Age: 28 Room: [facility] Gender: Female Note Status: Finalized Procedure: Colonoscopy Indications: Abdominal pain in the right upper quadrant Providers: Vicente DIXON MD Referring MD: 1. No Referring Physician 1. No Referring Physician, Admin. Requesting Provider: Medicines: Monitored Anesthesia Care Complications: No immediate complications. Procedure: Pre-Anesthesia Assessment: - The heart rate, respiratory rate, oxygen saturations, blood pressure, adequacy of pulmonary ventilation, and response to care were monitored throughout the procedure. The Colonoscope was introduced through the anus and advanced to 10 cm into the ileum. The colonoscopy was performed without difficulty. The patient tolerated the procedure well. The quality of the bowel preparation was good. Findings: The perianal and digital rectal examinations were normal. The terminal ileum appeared normal. A 4 mm polyp was found in the sigmoid colon. The polyp was sessile. The polyp was removed with a cold snare. Resection and retrieval were complete. The exam was otherwise normal throughout the examined colon. Small Internal Hemorrhoids. Impression: - One 4 mm polyp in the sigmoid colon, removed with a cold snare. Resected and retrieved. - Small Internal Hemorrhoids. - The colon is otherwise normal. - The examined portion of the ileum was normal. Recommendation: - Use fiber, for example Citrucel, Fibercon, Konsyl or Metamucil. - Repeat colonoscopy in 5 years for surveillance. Vicente Dixon MD Vicente DIXON MD 12/22/2018 1:40:53 PM Electronically signed by Vicente DIXON MD Number of Addenda: 0 Note Initiated On: 12/22/2018 1:12 PM Estimated Blood Loss: Estimated blood loss: none.
[2018-12-22 14:10] VITALS: BP 135/99
== END 2018-12-22 14:19 | disposition home or self-care (01) ==
LOC: M OPP 10:51
PROVIDERS: ATTEND Internal Medicine Gastroenterology
DX: D12.5 Benign neoplasm of sigmoid colon (principal); K64.8 Other hemorrhoids; R10.11 Right upper quadrant pain; R11.0 Nausea

== ENCOUNTER 2019-02-10 23:55 | Emergency (ER) | payer OTHER ==
[~2019-02-10] VITALS: Ht 162.6 cm; Wt 82.0 kg
[~2019-02-10 23:55] MED LIST changes: -NS 1,000 ML IV ONE
[2019-02-11 00:51] VITALS: BP 128/66
--- NOTE | 2019-02-11 07:59 | REP ---
Right hand series: Four views. History: Trauma. Comparison study May 07, 2009. Findings: There is a small bone island noted incidentally in the lunate. Bones, joints, and soft tissues are otherwise unremarkable. No fracture or subluxation is seen. No opaque foreign body is noted. Impression: Negative radiographs of the right hand. Electronically Signed by Azael Carmona MD 02/11/2019 07:51 A
== END 2019-02-11 01:26 | disposition home or self-care (01) ==
LOC: M ED 23:55
DX: S60.221A Contusion of right hand, initial encounter (principal); W23.0XXA Caught, crushed, jammed, or pinched between moving objects, initial encounter; Y92.009 Unspecified place in unspecified non-institutional (private) residence as the place of occurrence of the external cause; Y93.89 Activity, other specified; Y99.8 Other external cause status; F90.9 Attention-deficit hyperactivity disorder, unspecified type

== ENCOUNTER 2019-03-04 23:55 | Emergency (ER) | payer OTHER ==
[~2019-03-04] VITALS: Ht 167.6 cm; Wt 79.5 kg
[2019-03-05] MEDS ORDERED: diphenhydrAMINE INJ 50MG/ML VIAL (J1200) IV STA (00:50)
[2019-03-05] MEDS ORDERED: METOCLOPRAMIDE INJ 10MG/2ML VIAL (J2765) IV ONE (01:00)
[2019-03-05] MEDS ORDERED: KETOROLAC 30 MG/ML VIAL (J1885) IV ONE (01:00)
[2019-03-05] MEDS ORDERED: NS 1,000 ML IV ONE (01:00)
--- NOTE | 2019-03-05 01:25 | REPVR ---
PROCEDURE INFORMATION: Exam: US Abdomen Limited, Right Upper Quadrant Exam date and time: 03/05/19 (1:08am) Age: 28 years old Clinical history: Epigastric / RUQ pain TECHNIQUE: Imaging protocol: Real-time ultrasound of the abdomen with image documentation. Examination was focused on the right upper quadrant. COMPARISON: US GALLBLADDER of 10/03/18 FINDINGS: The liver is visually normal in size, with mild fatty infiltration. The gallbladder has normal wall thickness (1.9 mm), with no stones nor sludge seen. No pericholecystic fluid is appreciated. The sonographic Bhandari's sign is reported to be (-). The CBD is not dilated (2.9 mm diameter). The pancreas appears unremarkable. The right kidney measures 12.3 cm in length, with no hydronephrosis appreciated. No ascites is seen. IMPRESSION: No acute cholecystitis changes. The gallbladder is unremarkable, with no stones identified. No biliary dilatation. No abnormal fluid collections. Electronically signed by: Pilar Arevalo On 03/05/2019 01:24:38 AM
[2019-03-05 01:38] LABS: BASO % 0.5 % (0.0-1.0); EOS % 0.5 % (0.0-3.0); HEMATOCRIT 29.1 % (36.0-47.0); HEMOGLOBIN 8.4 g/dl (12.0-15.5); LYMPH # 1.9 10^3/uL (1.5-5.0); LYMPH % 23.9 % (24.0-44.0); MEAN CORPUSCULAR HEMOGLOBIN 22.6 pg (27.0-33.0); MEAN CORPUSCULAR HGB CONC 28.9 g/dl (32.0-36.5); MEAN CORPUSCULAR VOLUME 78.4 fl (80.0-96.0); MONO # 0.7 10^3/uL (0.0-0.8); MONO % 8.5 % (0.0-5.0); NEUTROPHILS # 5.2 10^3/uL (1.5-8.5); NEUTROPHILS % 66.5 % (36.0-66.0); PLATELET COUNT, AUTOMATED 286 10^3/uL (150-450); RED BLOOD COUNT 3.71 10^6/uL (4.00-5.40); WHITE BLOOD COUNT 7.8 10^3/uL (4.0-10.0)
[2019-03-05] MEDS: GI COCKTAIL 50ML BTL(HYOSCYAMINE/MAALOX/LIDOCAINE VISCOUS)(1:3:1) PO ONE ×2 (01:51→02:41)
[2019-03-05] MEDS: SUCRALFATE 1 GM TAB PO ONE ×2 (01:51→02:41)
[2019-03-05 02:07] LABS: INFLUENZA A AMPLIFICATION NEGATIVE (NEGATIVE); INFLUENZA B AMPLIFICATION NEGATIVE (NEGATIVE)
[2019-03-05 02:18] LABS: ALBUMIN 3.7 GM/DL (3.2-5.2); ALT/SGPT 13 U/L (12-78); BILIRUBIN,DIRECT < 0.1 MG/DL (0.0-0.2); BILIRUBIN,TOTAL 0.3 MG/DL (0.2-1.0); CPK CREATINE PHOSPHOKINASE 96 U/L (26-192); LIPASE 88 U/L (73-393); MB/CK RELATIVE INDEX 1.04 (< OR =4); TOTAL PROTEIN 7.3 GM/DL (6.4-8.2); TROPONIN I < 0.02 NG/ML (< 0.10)
[2019-03-05] MEDS ORDERED: BACT800T5 PO (02:53)
[2019-03-05 03:04] VITALS: BP 120/72
--- NOTE | 2019-03-05 08:40 | REP ---
Chest x-ray: Two views. History: Abdomen pain. Comparison study: August 28, 2018 and May 16, 2017. Findings: The lungs are symmetrically aerated and clear. Pleural angles are sharp. Heart size is normal. Pulmonary vasculature is not increased. Impression: No active disease. Electronically Signed by Azael Carmona MD 03/05/2019 08:31 A
--- NOTE | 2019-03-05 13:12 | ECGEPIP ---
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
== END 2019-03-05 03:05 | disposition home or self-care (01) ==
LOC: M ED 23:55
DX: N39.0 Urinary tract infection, site not specified (principal)
CPT/HCPCS: 71046; 76705; 80047; 80076; 81001; 82550; 82553; 83690; 84702; 85025; 87086; 87502; 93005; 96374; 96375; 99284; J1200; J1885; J2765

== ENCOUNTER 2019-03-27 21:54 | Observation (INO) | payer OTHER ==
[~2019-03-27] VITALS: Ht 165.1 cm; Wt 80.0 kg
[2019-03-27] MEDS ORDERED: LAMO25TA4 PO (22:03)
[2019-03-27] MEDS ORDERED: METHOCARBAMOL 1,000 MG/10 ML VIAL (J2800) IV ONE (23:15)
[2019-03-27] MEDS ORDERED: LIDOCAINE 5% (LIDODERM) PATCH TD ONE (23:15)
[2019-03-27] MEDS ORDERED: KETOROLAC 30 MG/ML VIAL (J1885) IV ONE (23:15)
[2019-03-27] MEDS ORDERED: NS 1,000 ML IV ONE (23:15)
[2019-03-27 23:23] LABS: BASO % 0.5 % (0.0-1.0); EOS # 0.1 10^3/uL (0.0-0.5); EOS % 0.9 % (0.0-3.0); HEMATOCRIT 27.8 % (36.0-47.0); HEMOGLOBIN 7.8 g/dl (12.0-15.5); LYMPH # 2.1 10^3/uL (1.5-5.0); LYMPH % 27.2 % (24.0-44.0); MEAN CORPUSCULAR HEMOGLOBIN 21.4 pg (27.0-33.0); MEAN CORPUSCULAR HGB CONC 28.1 g/dl (32.0-36.5); MEAN CORPUSCULAR VOLUME 76.2 fl (80.0-96.0); MONO # 0.6 10^3/uL (0.0-0.8); MONO % 7.3 % (0.0-5.0); NEUTROPHILS # 4.9 10^3/uL (1.5-8.5); NEUTROPHILS % 63.8 % (36.0-66.0); PLATELET COUNT, AUTOMATED 370 10^3/uL (150-450); RED BLOOD COUNT 3.65 10^6/uL (4.00-5.40); WHITE BLOOD COUNT 7.7 10^3/uL (4.0-10.0)
[2019-03-27 23:42] LABS: ALBUMIN 3.9 GM/DL (3.2-5.2); ALT/SGPT 9 U/L (12-78); BILIRUBIN,DIRECT < 0.1 MG/DL (0.0-0.2); BILIRUBIN,TOTAL 0.3 MG/DL (0.2-1.0); CK-MB VALUE MASS < 1.0 NG/ML (<3.6); CPK CREATINE PHOSPHOKINASE 84 U/L (26-192); LIPASE 91 U/L (73-393); MB/CK RELATIVE INDEX 1.19 (< OR =4); TOTAL PROTEIN 7.5 GM/DL (6.4-8.2); TROPONIN I < 0.02 NG/ML (< 0.10)
[2019-03-28 00:06] LABS: C REACTIVE PROTEIN QUANTITATIV 0.48 MG/DL (0.00-0.30)
--- NOTE | 2019-03-28 00:07 | ECGEPIP ---
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
[2019-03-28 00:15] LABS: ERYTHROCYTE SEDIMENTATION RATE 41 mm/hr (0-20)
[2019-03-28] MEDS ORDERED: ISOVUE-370 76% 100ML VIAL (Q9967) As Ordered ONE (00:36)
[2019-03-28] MEDS ORDERED: MORPHINE 4 MG/ML 1ML VIAL/SYRINGE (J2270) IV ONE (00:45)
--- NOTE | 2019-03-28 01:13 | REPVR ---
PROCEDURE INFORMATION: Exam: CT Abdomen And Pelvis With Contrast Exam date and time: 03/28/2019 12:47 AM Age: 28 years old Clinical history: Abdominal pain; Localized; Right; Additional info: Right sided abd pain, low h&h TECHNIQUE: Imaging protocol: Computed tomography of the abdomen and pelvis with intravenous contrast. Axial, coronal and sagittal reformatted images were created and reviewed. Radiation optimization: All CT scans at this facility use at least one of these dose optimization techniques: automated exposure control; mA and/or kV adjustment per patient size (includes targeted exams where dose is matched to clinical indication); or iterative reconstruction. Contrast material: ISOVUE 370; Contrast volume: 100 ml; Contrast route: IV; COMPARISON: CT ABD/PEL W/IV ORAL CONTRAS 08/28/2018 11:01 PM FINDINGS: Heart: Small pericardial effusion. Liver: Mild hepatomegaly. Subcentimeter low-density hepatic lesions, measuring up to 9 mm in the left hepatic lobe, too small to characterize. Gallbladder and bile ducts: No radiodense gallstones. No biliary ductal dilatation. Pancreas: Unremarkable. Spleen: Unremarkable. Adrenals: Unremarkable. Kidneys and ureters: Punctate nonobstructing left renal calculus. No hydronephrosis. Stomach and bowel: Scattered colonic diverticula without evidence of diverticulitis. No obstruction. No bowel wall thickening. No pneumatosis. Appendix: Normal. Intraperitoneal space: No free fluid. No organized fluid collection. No free air. Vasculature: Unremarkable. No aneurysm. Lymph nodes: Small mesenteric lymph nodes, nonspecific in appearance. No pathologically enlarged lymph nodes. Bladder: Mild circumferential urinary bladder wall thickening, likely secondary to underdistention. Reproductive: Intrauterine device in place. Probable involuting right ovarian corpus luteal cyst versus dominant follicle. Bones/joints: No acute osseous abnormality. Soft tissues: Unremarkable. IMPRESSION: 1. No CT evidence of acute intra-abdominal or pelvic pathology. 2. Additional findings, as above. Electronically signed by: Alli Malhotra On 03/28/2019 01:13:29 AM
[2019-03-28] MEDS ORDERED: metroNIDAZOLE (FLAGYL) 500 MG TAB PO ONE ×2 (02:00→03:30)
[2019-03-28 02:16] LABS: CHLAMYDIA DNA AMPLIFICATION NEGATIVE (NEGATIVE); GC DNA AMPLIFICATION NEGATIVE (NEGATIVE)
[2019-03-28 02:21] LABS: FERRITIN 3 NG/ML (8-252); IRON (FE) 19 UG/DL (50-170); PERCENT SATURATION 4.4 % (13.2-45.0); TOTAL IRON BINDING CAPACITY 428 UG/DL (250-450)
[2019-03-28 03:30] VITALS: BP 104/66
--- NOTE | 2019-03-28 04:56 | HPEPDOC ---
[facility] Medical History & Physical Date of Admission Mar 28, 2019 Date of Service: Mar 28, 2019 Other Provider Vicente Mack MD Attending Physician: ANN CAVANAUGH MD History and Physical CHIEF COMPLAINT: Chest pain and vaginal discharge HISTORY OF PRESENT ILLNESS: This is a 28-year-old female with a known past medical history of iron deficiency anemia noncompliant with chest pain and vaginal discharge. She states for the last couple of hours she had chest pain that feels like an elephant sitting on her chest. She endorses a history of iron deficiency anemia and has not gotten iron infusion since earlier this year April. She also admits to having lightheadedness and dizziness when she stands up too suddenly. Lastly she is complaining of vaginal discharge possible UTI versus yeast infection. Patient would like to know if she is getting admitted if she is possible to be discharged later Friday evening versus Friday morning. She has no other complaints at this time. She denies weight loss, hair loss, visual changes, shortness of breath, cough, headache muscle aches, worsening arthritis, change in mood. In the ER vitals were stable. Hemoglobin was 7.8, iron 19 ferritin 3 and negative beta hCG. Pelvic exam performed by ER better was positive for Trichomonas vaginalis. Hospitalist team was then called for admission REVIEW OF SYSTEMS: 10 systems reviewed and negative other than HPI FAMILY HISTORY:Reviewed and noncontributory PAST MEDICAL/SURGICAL HISTORY: 1. Iron deficiency anemia 2. menometrorrhagia. 3. Bipolar disorder 4. ADHD/ADD 5. PTSD 6. Severe depression/anxiety SOCIAL HISTORY: Lives with: [place] with family, Employment: Unemployed, Tobacco use: Never. ETOH: Socially, Illicit drug use: Denies, CODE STATUS: Full HOME MEDICATIONS: Please see below. ALLERGIES: Please see below PHYSICAL EXAMINATION: VITAL SIGNS: See below GENERAL: Pleasant 28-year-old female laying in bed awake alert oriented speaking in complete sentences no acute distress HEENT: Atraumatic normocephalic pupils equal round and reactive most mucous membranes pale conjunctiva with no JVD CARDIOVASCULAR: S1 S2 regular no additional heart sounds appreciated. RESPIRATORY: Clear to auscultation bilaterally. ABDOMINAL: Bowel sounds present abdomen soft and nontender EXTREMITIES: No clubbing cyanosis or edema NEUROLOGICAL: Spontaneously moves all 4 extremities cranial 2 through 12 grossly intact no gross focal deficits appreciated PSYCHOLOGICAL: Appropriate LABORATORY DATA: See below. MICROBIOLOGY: Please see below. IMAGIN03/27/2019 chest x-ray 03/28/[address] - Punctate nonobstructing left renal calculus. No hydronephrosis. No CT evidence of acute intra-abdominal or pelvic pathology. ASSESSMENT & PLAN: This is a 28-year-old female with a past medical history of iron deficiency anemia noncompliance who presented with chest pain and vaginal discharge and will be admitted for tx of symptomatic anemia. PROBLEMS: 1. Chest pain secondary to acute symptomatic anemia. Known history of iron deficiency anemia noncompliant with iron infusions and history of menometrorrhag ia. States last infusion was April 2018 and she is yet to follow-up. She states she is unable to take by mouth iron for they make her throw up. We will check her TSH to rule out hyperthyroidism which can disrupt the menstrual cycle and monitor H&H if hemoglobin goes below 7 well transfuse. Pending the iron panel we may order Venofer. We will consult Gyne this admission because she may not follow up with them on an out patient basis, to see if she needs a TVUS , pelvic exam and is a candidate for OCPs to help regulate her cycle.We will obtain a stool occult and if positive can consider getting a GI evaluation. 2. Vaginal discharge. Positive for trichomonas vaginalis PCR. She got 500 mg m etronidazole in the ER. Will give another 1500 mg of Flagyl for a total of 2 g 1. She will need to get EPT for her partner at the same dose and abstain from sexual activity for 7 days 3. Bipolar disorder. Continue home lamotrigine 25 mg by mouth daily 4. Severe depression and anxiety. Not on any home medications. Mood appears stable. Well continue to monitor DVT PROPHYLAXIS: TEDs and sequential DISPOSITION: Observation status possibly less than 2 midnight Vital Signs Vital Signs Date Time Temp Pulse Resp B/P (MAP) Pulse Ox O2 Delivery O2 Flow Rate FiO2 03/28/19 03:30 98.4 66 18 104/66 (79) 98 Room Air Laboratory Data Labs 24H Laboratory Tests 2 03/27/19 23:14: Immature Granulocyte % (Auto) 0.3, Neutrophils (%) (Auto) 63.8, Lymphocytes (%) (Auto) 27.2, Monocytes (%) (Auto) 7.3H, Eosinophils (%) (Auto) 0.9, Basophils (%) (Auto) 0.5, Neutrophils # (Auto) 4.9, Lymphocytes # (Auto) 2.1, Monocytes # (Auto) 0.6, Eosinophils # (Auto) 0.1, Basophils # (Auto) 0.0, Reticulocyte # (auto) 53.7, Nucleated Red Blood Cells % (auto) 0.0, Erythrocyte Sedimentation Rate 41H, Percent Reticulocyte Count 1.5, Reticulocyte Hemoglobin Equivalent 18.0L, Urine Color STRAW, Urine Appearance CLEAR, Urine pH 6.0, Urine Specific [place] 1.004, Urine Protein NEGATIVE, Urine Glucose (UA) NEGATIVE, Urine Ketones NEGATIVE, Urine Blood NEGATIVE, Urine Nitrite NEGATIVE, Urine Bilirubin NEGATIVE, Urine Urobilinogen 0.2, Urine Leukocyte Esterase TRACEH, Urine WBC (Auto) 5H, Urine RBC (Auto) 0, Urine Hyaline Casts (Auto) 0, Urine Bacteria (Auto) NEGATIVE, Urine Squamous Epithelial Cells 0, Urine Sperm (Auto) , Iron Level 19L, Total Iron Binding Capacity 428, Transferrin % Saturation 4.4L, Ferritin 3L, Total Bilirubin 0.3, Direct Bilirubin < 0.1, Aspartate Amino Transf (AST/SGOT) 19, Alanine Aminotransferase (ALT/SGPT) 9L, Alkaline Phosphatase 74, Total Creatine Kinase 84, Creatine Kinase MB < 1.0, Creatine Kinase MB Relative Index 1.19, Troponin I < 0.02, C-Reactive Protein, Quantitative 0.48H, Total Protein 7.5, Albumin 3.9, Albumin/Globulin Ratio 1.08, Lipase 91 03/27/19 23:18: POC Glucose (Misc Panel) 87, POC Sodium (Misc Panel) 138, POC Potassium (Misc Panel) 3.8, POC Chloride (Misc Panel) 103, POC Total CO2 (Misc Panel) 28.0H, POC Blood Urea Nitrogen (Misc Panel 9, POC Ionized Calcium (Misc Panel) 4.7, POC Creatinine (Misc Panel) 0.5L, POC Hematocrit (Misc Panel) 28.0L 03/27/19 23:30: POC Beta HCG, Quantitative < 5.0 03/28/19 00:42: Chlamydia trachomatis DNA (JIM) NEGATIVE, Neisseria gonorrhoeae DNA (JIM) NEGATIVE, Trichomonas vaginalis (PCR) POSITIVEH CBC/BMP Laboratory Tests 03/27/19 23:14 Microbiology Microbiology 03/28/19 Wet Prep - Final, Complete 03/27/19 Urine Culture, Received Pending Home Medications Scheduled Lamotrigine (Lamotrigine) 25 Mg Tablet, 25 MG PO DAILY Allergies Coded Allergies: No Known Allergies (Verified , 02/11/19) GME ATTESTATION GME ATTESTATION My faculty preceptor for this patient encounter was physically present during the encounter and was fully available. All aspects of the patient interview, examination, medical decision making process, and medical care plan development were reviewed and approved by the faculty preceptor. The faculty preceptor is aware and concurs with the plan as stated in the body of this note and will at test to such by his/her cosignature. ATTENDING NOTE I examined at 405AM, reviewed & edited 's note and agree with the findings as documented. KARTIK TAYLOR DO Mar 28, 2019 04:56 ANN CAVANAUGH MD Mar 28, 2019 05:53
[2019-03-28 06:00] VITALS: BP 85/57
--- NOTE | 2019-03-28 08:48 | REP ---
Chest x-ray: Two views. History: Chest pain . Comparison study: March 05, 2019 . Findings: The lungs are well inflated and free of infiltrate. The pleural angles are sharp. The heart size is normal. Pulmonary vasculature is not increased. No significant bony abnormality is seen. Impression: Negative chest x-ray. Electronically Signed by Azael Carmona MD 03/28/2019 08:38 A
[2019-03-28] MEDS ORDERED: IRON SUCROSE 100MG 5ML VIAL (J1756 PER 1MG) IV SCH (09:00)
[2019-03-28] MEDS: lamoTRIgine 25 MG TAB PO SCH (09:50)
[2019-03-28] MEDS: IRON SUCROSE 100 MG in NS 100 ML OVER 1 HR IV SCH (09:50)
--- NOTE | 2019-03-28 11:03 | IPNPDOC ---
Text Note Date of Service The patient was seen on 03/28/19. NOTE SUBJECTIVE: -No complaints this AM PHYSICAL EXAMINATION: VITAL SIGNS: See below GENERAL: NAD HEENT: PERRLA, EOMI, MMM, has conjunctival pallor CARDIOVASCULAR: RRR, no mrg RESPIRATORY: CTAB ABDOMINAL: Normoactive bowel sounds, NTND, no organomegaly or masses palpated EXTREMITIES: No clubbing, WWP, 2+ DP pulses, no edema NEUROLOGICAL: Spontaneously moves all 4 extremities, CN 2-12 intact without focal deficits appreciated PSYCHOLOGICAL: Appropriate LABORATORY DATA: MICROBIOLOGY: Please see below. IMAGIN03/27/2019 chest x-ray 03/28/[address] - Punctate nonobstructing left renal calculus. No hydronephrosis. No CT evidence of acute intra-abdominal or pelvic pathology. ASSESSMENT & PLAN: This is a 28-year-old female with a past medical history of iron deficiency anemia noncompliance who presented with chest pain and vaginal discharge and will be admitted for tx of symptomatic anemia. PROBLEMS: 1. Symptomatic chronic blood loss anemia with severe iron deficiency: Presented with chest pain secondary to acute symptomatic anemia with stable EKG and negative troponin. -Known history of iron deficiency anemia noncompliant with iron infusions and history of menometrorrhagia. -States last infusion was April 2018 and she is yet to follow-up. -She states she is unable to take by mouth iron for they make her throw up. 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 -follow up FOBT to r/o GIB 2. Vaginal dischargeL +trichomonas vaginalis by PCR. -s/p 500 mg metronidazole in the ED and 1500 mg for a total of 2 g 1 by the admitting team and has been treated to completion at this time. -She will need EPT 2g of metronidazole script for her partner at the same dose and abstain from sexual activity for 7 days 3. Bipolar disorder. -Continue home lamotrigine 25 mg by mouth daily 4. Severe depression and anxiety. Not on any home medications. Mood appears stable. Well continue to monitor and needs psych referral as an outpatient DVT ppx: SCDs Diet: Regular VS,Fishbone, I+O VS, Fishbone, I+O Laboratory Tests 03/27/19 23:14 Vital Signs Date Time Temp Pulse Resp B/P (MAP) Pulse Ox O2 Delivery O2 Flow Rate FiO2 03/28/19 06:00 98.7 75 18 85/57 (66) 97 Room Air I&O- Last 24 Hours up to 6 AM 03/28/19 06:00 Intake Total 0 ml Balance 0 ml YINA CRAWFORD MD Mar 28, 2019 09:09
[2019-03-28] MEDS ORDERED: **NOTE PATIENT COMMENT** MISC XX ONE (12:00)
[2019-03-28 14:00] VITALS: BP 113/81
[2019-03-28] MEDS ORDERED: ACETAMINOPHEN TAB 650MG DOSE (2X325MG) PO PRN (16:30)
[2019-03-28] MEDS ORDERED: KETOROLAC 30 MG/ML VIAL (J1885) IV ONE (20:45)
[2019-03-28] MEDS ORDERED: **NOTE PATIENT COMMENT** MISC XX SCH (21:00)
[2019-03-28 22:00] VITALS: BP 117/80
[2019-03-28] MEDS ORDERED: ONDANSETRON 4MG/2ML VIAL (J2405) IV PRN (23:30)
[2019-03-29 06:00] VITALS: BP 106/65
[2019-03-29 06:19] LABS: HEMOGLOBIN 7.3 g/dl (12.0-15.5); MEAN CORPUSCULAR HEMOGLOBIN 21.5 pg (27.0-33.0); MEAN CORPUSCULAR HGB CONC 28.1 g/dl (32.0-36.5); MEAN CORPUSCULAR VOLUME 76.5 fl (80.0-96.0); PLATELET COUNT, AUTOMATED 321 10^3/uL (150-450); WHITE BLOOD COUNT 5.4 10^3/uL (4.0-10.0)
[2019-03-29 06:38] LABS: BLOOD UREA NITROGEN 11 MG/DL (7-18); CALCIUM LEVEL 8.6 MG/DL (8.5-10.1); CARBON DIOXIDE LEVEL 26 MEQ/L (21-32); CHLORIDE LEVEL 109 MEQ/L (98-107); CREATININE FOR GFR 0.73 MG/DL (0.55-1.30); GLOMERULAR FILTRATION RATE > 60.0 (>60); GLUCOSE, FASTING 80 MG/DL (70-100); SODIUM LEVEL 141 MEQ/L (136-145)
--- NOTE | 2019-03-29 08:27 | DS.PDOC ---
Discharge Summary General Date of Admission Mar 27, 2019 at 21:55 Date of Discharge 03/29/2019 Attending Physician: YINA CRAWFORD MD Discharge Summary PROCEDURES PERFORMED DURING STAY: None ADMITTING DIAGNOSES: 1. Chronic blood loss anemia DISCHARGE DIAGNOSES: 1. Chronic blood loss anemia 2/2 menometrorrhagia 2. Trichomonas Vaginalis Infection 3. Bipolar disorder COMPLICATIONS/CHIEF COMPLAINT: Anemia;Trichomonas Vaginalis Infection. HISTORY OF PRESENT ILLNESS: 28-year-old woman with a known past medical history of iron deficiency anemia 2/2 menometrorrhagia noncompliant with her PO iron supplementation and previously received IV iron, but recently loss to follow up with hematology and perhaps PCP, who presented with chest pain and vaginal discharge. She reported 2 hours of chest pain that felt like an elephant was sitting on her chest, in the setting of last iron infusion in 04/2018. She also admitted to having lightheadedness and dizziness when she stands up too suddenly. Lastly she reported vaginal discharge. She otherwise denied weight loss, hair loss, visual changes, shortness of breath, cough, headache muscle aches, worsening arthritis, change in mood. HOSPITAL COURSE: In the ED vitals were stable. Hemoglobin was 7.8, iron 19 ferritin 3 and negative beta hCG. Pelvic exam performed by ED and she was positive for Trichomonas vaginalis. She was admitted to medicine where she received 100mg IV iron sucrose x 2 doses and 2g of metronidazole for the Trichomonas. She is now being discharged home with hematology referral to continue IV iron infusions as she will need more than 2 doses as she refuses to take PO iron citing severe intolerance to it. I have also provided her with an EPT 2g of metronidazole script for her partner at the same dose and recommending abstaining from sexual activity for 7 days. I had hoped that she could be keren luated by gynecology while inpatient given her poor follow up but she insists on discharge home at this time so I will also refer to her gynecology as an outpatient at this time. DISCHARGE MEDICATIONS: Please see below. ALLERGIES: Please see below. PHYSICAL EXAMINATION ON DISCHARGE: VITAL SIGNS: Please see below. VITAL SIGNS: See below GENERAL: NAD HEENT: PERRLA, EOMI, MMM, has conjunctival pallor CARDIOVASCULAR: RRR, no mrg RESPIRATORY: CTAB ABDOMINAL: Normoactive bowel sounds, NTND, no organomegaly or masses palpated EXTREMITIES: No clubbing, WWP, 2+ DP pulses, no edema NEUROLOGICAL: Spontaneously moves all 4 extremities, CN 2-12 intact without focal deficits appreciated PSYCHOLOGICAL: AOx3 LABORATORY DATA: Please see below. IMAGIN03/27/2019 chest x-ray 03/28/[address] - Punctate nonobstructing left renal calculus. No hydronephrosis. No CT evidence of acute intra-abdominal or pelvic pathology. PROGNOSIS: Good ACTIVITY: As tolerated DIET: Regular DISCHARGE PLAN: Referral to hematology and gynecology, as well as PCP follow up DISPOSITION: Home DISCHARGE INSTRUCTIONS: 1. Referral to hematology and gynecology, as well as PCP follow up. Please follow up especially with hematology to receive IV iron supplementation as you are severely iron deficient, as well as gynecology for management of your severe menometrorrhagia ITEMS TO FOLLOWUP ON ON OUTPATIENT: 1. Severe iron deficiency anemia 2. Menometrorrhagia DISCHARGE CONDITION: Stable TIME SPENT ON DISCHARGE: 40 minutes. Vital Signs/I&Os Vital Signs Date Time Temp Pulse Resp B/P (MAP) Pulse Ox O2 Delivery O2 Flow Rate FiO2 03/29/19 06:00 98.4 68 16 106/65 (79) 99 Room Air I&O- Last 24 Hours up to 6 AM 03/29/19 06:00 Intake Total 2740 ml Balance 2740 ml Laboratory Data Labs 24H Laboratory Tests 2 03/29/19 06:02: Nucleated Red Blood Cells % (auto) 0.0, Anion Gap 6L, Glomerular Filtration Rate > 60.0, Calcium Level 8.6 CBC/BMP Laboratory Tests 03/29/19 06:02 Microbiology Microbiology 03/28/19 Wet Prep - Final, Complete 03/27/19 Urine Culture, Received Pending Discharge Medications Scheduled Lamotrigine (Lamotrigine) 25 Mg Tablet, 25 MG PO DAILY, (Reported) Allergies Coded Allergies: No Known Allergies (Verified , 02/11/19) YINA CRAWFORD MD Mar 29, 2019 08:27
[2019-03-29] MEDS ORDERED: KETOROLAC 30 MG/ML VIAL (J1885) IV ONE (09:30)
[2019-03-29] MEDS: lamoTRIgine 25 MG TAB PO SCH (09:38)
[2019-03-29] MEDS: IRON SUCROSE 100 MG in NS 100 ML OVER 1 HR IV SCH (09:39)
== END 2019-03-29 10:55 | disposition home or self-care (01) ==
LOC: M ED 21:54 → M ED INP 21:55 → M MS5PR 03-28 03:30
PROVIDERS: ADMIT Internal Medicine; ATTEND Internal Medicine
DX: D50.0 Iron deficiency anemia secondary to blood loss (chronic) (principal); N92.1 Excessive and frequent menstruation with irregular cycle; A59.01 Trichomonal vulvovaginitis; F31.9 Bipolar disorder, unspecified; F90.9 Attention-deficit hyperactivity disorder, unspecified type; F43.10 Post-traumatic stress disorder, unspecified; F32.9 Major depressive disorder, single episode, unspecified; F41.9 Anxiety disorder, unspecified; Z91.14 Patient's other noncompliance with medication regimen; Z79.899 Other long term (current) drug therapy
CPT/HCPCS: 36415; 71046; 74177; 80047; 80048; 80076; 81001; 82550; 82553; 82728; 83550; 83690; 84443; 84702; 85025; 85027; 85046; 85652; 86140; 87086; 87210; 87661; 93005; 96374; 96375; 96376; 99284; J1756; J1885; J2405; J2800; Q9967

== ENCOUNTER 2019-04-25 20:23 | Emergency (ER) | payer OTHER ==
[~2019-04-25] VITALS: Ht 165.1 cm; Wt 77.3 kg
[~2019-04-25 20:23] MED LIST changes: +LAMO25TA4 PO
[2019-04-25] MEDS ORDERED: RISP0.5T3 (20:29)
[2019-04-25 21:37] LABS: BASO % 0.6 % (0.0-1.0); EOS # 0.1 10^3/uL (0.0-0.5); EOS % 0.8 % (0.0-3.0); HEMATOCRIT 28.7 % (36.0-47.0); LYMPH # 1.8 10^3/uL (1.5-5.0); LYMPH % 28.1 % (24.0-44.0); MEAN CORPUSCULAR HGB CONC 27.9 g/dl (32.0-36.5); MEAN CORPUSCULAR VOLUME 75.3 fl (80.0-96.0); MONO # 0.8 10^3/uL (0.0-0.8); MONO % 12.4 % (0.0-5.0); NEUTROPHILS # 3.8 10^3/uL (1.5-8.5); NEUTROPHILS % 57.8 % (36.0-66.0); PLATELET COUNT, AUTOMATED 310 10^3/uL (150-450); RED BLOOD COUNT 3.81 10^6/uL (4.00-5.40); WHITE BLOOD COUNT 6.5 10^3/uL (4.0-10.0)
[2019-04-25 21:59] LABS: ALBUMIN 3.9 GM/DL (3.2-5.2); ALT/SGPT 11 U/L (12-78); BILIRUBIN,DIRECT < 0.1 MG/DL (0.0-0.2); BILIRUBIN,TOTAL 0.2 MG/DL (0.2-1.0); BLOOD UREA NITROGEN 8 MG/DL (7-18); CALCIUM LEVEL 8.6 MG/DL (8.5-10.1); CARBON DIOXIDE LEVEL 23 MEQ/L (21-32); CHLORIDE LEVEL 110 MEQ/L (98-107); CREATININE FOR GFR 0.73 MG/DL (0.55-1.30); GLOMERULAR FILTRATION RATE > 60.0 (>60); GLUCOSE, FASTING 97 MG/DL (70-100); LIPASE 108 U/L (73-393); POTASSIUM SERUM 3.9 MEQ/L (3.5-5.1); SODIUM LEVEL 141 MEQ/L (136-145); TOTAL PROTEIN 7.4 GM/DL (6.4-8.2)
[2019-04-25] MEDS ORDERED: ONDANSETRON 4MG/2ML VIAL (J2405) IV ONE (22:30)
[2019-04-25] MEDS ORDERED: KETOROLAC 30 MG/ML VIAL (J1885) IV ONE (22:30)
[2019-04-26 00:48] VITALS: BP 103/54
== END 2019-04-26 00:50 | disposition home or self-care (01) ==
LOC: M ED 20:23
DX: G89.29 Other chronic pain (principal); R10.9 Unspecified abdominal pain; D63.8 Anemia in other chronic diseases classified elsewhere; R05 Cough; K80.20 Calculus of gallbladder without cholecystitis without obstruction; Z87.442 Personal history of urinary calculi; G43.909 Migraine, unspecified, not intractable, without status migrainosus; F90.9 Attention-deficit hyperactivity disorder, unspecified type; E66.9 Obesity, unspecified
CPT/HCPCS: 80048; 80076; 83690; 84702; 85025; 86850; 86900; 86901; 87880; 96374; 96375; 99284; J1885; J2405

== ENCOUNTER → 2019-06-29 | Outpatient (REF) | payer OTHER ==
[~2019-06-29] MED LIST changes: +RISP0.5T3
== END ==
LOC: M LAB REF 21:20
PROVIDERS: ATTEND Physician Assistant Medical
DX: R05 Cough (principal)

== ENCOUNTER → 2019-07-06 | Outpatient (REF) | payer OTHER ==
[2019-07-06 18:21] LABS: ALT/SGPT 12 U/L (12-78); BILIRUBIN,TOTAL 0.3 MG/DL (0.2-1.0); BLOOD UREA NITROGEN 6 MG/DL (7-18); CALCIUM LEVEL 8.7 MG/DL (8.5-10.1); CARBON DIOXIDE LEVEL 30 MEQ/L (21-32); CHLORIDE LEVEL 110 MEQ/L (98-107); CREATININE FOR GFR 0.84 MG/DL (0.55-1.30); FERRITIN 3 NG/ML (8-252); GLOMERULAR FILTRATION RATE > 60.0 (>60); GLUCOSE, FASTING 80 MG/DL (70-100); IRON (FE) 11 UG/DL (50-170); POTASSIUM SERUM 4.2 MEQ/L (3.5-5.1); SODIUM LEVEL 143 MEQ/L (136-145); TOTAL PROTEIN 7.7 GM/DL (6.4-8.2)
[2019-07-06 18:27] LABS: BASO % 0.5 % (0.0-1.0); EOS % 0.8 % (0.0-3.0); FOLATE 15.5 NG/ML; HEMOGLOBIN 8.2 g/dl (12.0-15.5); LYMPH # 1.3 10^3/uL (1.5-5.0); LYMPH % 33.2 % (24.0-44.0); MEAN CORPUSCULAR HEMOGLOBIN 20.7 pg (27.0-33.0); MEAN CORPUSCULAR HGB CONC 29.3 g/dl (32.0-36.5); MEAN CORPUSCULAR VOLUME 70.7 fl (80.0-96.0); MONO # 0.4 10^3/uL (0.0-0.8); NEUTROPHILS # 2.2 10^3/uL (1.5-8.5); NEUTROPHILS % 55.7 % (36.0-66.0); PLATELET COUNT, AUTOMATED 331 10^3/uL (150-450); RED BLOOD COUNT 3.96 10^6/uL (4.00-5.40); TOTAL 25(OH) VITAMIN D 24.1 NG/ML (30.0-100.0); VITAMIN B12 LEVEL 321 PG/ML; WHITE BLOOD COUNT 3.9 10^3/uL (4.0-10.0)
== END ==
LOC: M LAB REF 17:44
PROVIDERS: ATTEND Family Medicine
DX: E61.1 Iron deficiency (principal)

== ENCOUNTER → 2019-09-03 | Outpatient (REF) | payer OTHER ==
[2019-09-03 13:24] LABS: URINE PREG TEST NEGATIVE (NEGATIVE)
== END ==
LOC: M LAB REF 13:02
PROVIDERS: ATTEND Physician Assistant Medical
DX: Z3A.00 Weeks of gestation of pregnancy not specified (principal)

== ENCOUNTER 2019-09-26 23:27 | Emergency (ER) | payer OTHER ==
[~2019-09-26] VITALS: Ht 165.1 cm; Wt 77.3 kg
[2019-09-26 23:28] VITALS: BP 114/72
[2019-09-27] MEDS ORDERED: KETOROLAC 60MG 2ML VIAL IM ONE
[2019-09-27] MEDS ORDERED: KETOROLAC 30 MG/ML 1ML VIAL IV ONE (00:15)
--- NOTE | 2019-09-27 21:28 | ECGEPIP ---
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
== END 2019-09-27 01:29 | disposition home or self-care (01) ==
LOC: M ED 23:27
DX: G43.909 Migraine, unspecified, not intractable, without status migrainosus (principal); G89.29 Other chronic pain; R10.9 Unspecified abdominal pain; D64.9 Anemia, unspecified; F90.9 Attention-deficit hyperactivity disorder, unspecified type

== ENCOUNTER 2019-10-27 20:18 | Emergency (ER) | payer OTHER ==
[~2019-10-27] VITALS: Ht 167.6 cm; Wt 80.3 kg
[2019-10-27 20:19] VITALS: BP 113/66
[2019-10-27] MEDS ORDERED: CEPHALEXIN 500 MG CAP PO ONE (21:00)
[2019-10-27] MEDS ORDERED: BACITRACIN OINTMENT 30GM TUBE TOP ONE (21:00)
[2019-10-27] MEDS ORDERED: KEFL500C17 PO (21:02)
== END 2019-10-27 21:32 | disposition home or self-care (01) ==
LOC: M ED 20:18
DX: S90.512A Abrasion, left ankle, initial encounter (principal); W26.8XXA Contact with other sharp object(s), not elsewhere classified, initial encounter; Y99.8 Other external cause status; Y92.009 Unspecified place in unspecified non-institutional (private) residence as the place of occurrence of the external cause; Y93.E8 Activity, other personal hygiene

== ENCOUNTER → 2019-11-11 00:11 | Emergency (ER) | payer OTHER ==
[~2019-11-11 00:11] MED LIST changes: +COLA100C5 PO; +FERR325T3 PO
== END | disposition left against medical advice (07) ==
LOC: M ED 00:11
DX: Z53.21 Procedure and treatment not carried out due to patient leaving prior to being seen by health care provider (principal)

== ENCOUNTER → 2019-11-21 | Emergency (ER) | payer OTHER | END | disposition left against medical advice (07) | LOC: M ED 20:55 | DX: R51 Headache (principal); R07.89 Other chest pain ==

== ENCOUNTER → 2019-12-22 | Outpatient (CLI) | payer OTHER ==
[2019-12-22 14:53] LABS: BASO % 0.3 % (0.0-1.0); EOS % 0.5 % (0.0-3.0); HEMATOCRIT 28.2 % (36.0-47.0); LYMPH # 1.3 10^3/uL (1.5-5.0); LYMPH % 20.1 % (24.0-44.0); MEAN CORPUSCULAR HEMOGLOBIN 20.2 pg (27.0-33.0); MEAN CORPUSCULAR HGB CONC 28.4 g/dl (32.0-36.5); MEAN CORPUSCULAR VOLUME 71.2 fl (80.0-96.0); MONO # 0.6 10^3/uL (0.0-0.8); MONO % 9.3 % (0.0-5.0); NEUTROPHILS # 4.4 10^3/uL (1.5-8.5); NEUTROPHILS % 69.5 % (36.0-66.0); PLATELET COUNT, AUTOMATED 264 10^3/uL (150-450); RED BLOOD COUNT 3.96 10^6/uL (4.00-5.40); WHITE BLOOD COUNT 6.3 10^3/uL (4.0-10.0)
== END ==
LOC: M LAB 13:28
PROVIDERS: ATTEND Family Medicine Addiction Medicine
DX: D64.9 Anemia, unspecified (principal)

== ENCOUNTER 2020-02-19 06:53 | Emergency (ER) | payer OTHER ==
[~2020-02-19] VITALS: Ht 165.1 cm; Wt 84.2 kg
[~2020-02-19 06:53] MED LIST changes: -COLA100C5 PO; -FERR325T3 PO
[2020-02-19 07:54] LABS: BASO % 0.4 % (0.0-1.0); EOS # 0.1 10^3/uL (0.0-0.5); EOS % 0.9 % (0.0-3.0); LYMPH # 1.2 10^3/uL (1.5-5.0); MEAN CORPUSCULAR HEMOGLOBIN 19.9 pg (27.0-33.0); MEAN CORPUSCULAR HGB CONC 28.3 g/dl (32.0-36.5); MEAN CORPUSCULAR VOLUME 70.2 fl (80.0-96.0); MONO # 0.6 10^3/uL (0.0-0.8); MONO % 8.6 % (0.0-5.0); NEUTROPHILS # 4.9 10^3/uL (1.5-8.5); NEUTROPHILS % 71.5 % (36.0-66.0); PLATELET COUNT, AUTOMATED 234 10^3/uL (150-450); RED BLOOD COUNT 3.42 10^6/uL (4.00-5.40); WHITE BLOOD COUNT 6.8 10^3/uL (4.0-10.0)
[2020-02-19 08:02] LABS: HEMOGLOBIN 6.8 g/dl (12.0-15.5)
[2020-02-19 08:10] LABS: BLOOD UREA NITROGEN 5 MG/DL (7-18); CALCIUM LEVEL 8.4 MG/DL (8.5-10.1); CARBON DIOXIDE LEVEL 22 MEQ/L (21-32); CHLORIDE LEVEL 109 MEQ/L (98-107); GLOMERULAR FILTRATION RATE > 60.0 (>60); GLUCOSE, FASTING 74 MG/DL (70-100); POTASSIUM SERUM 3.8 MEQ/L (3.5-5.1); SODIUM LEVEL 138 MEQ/L (136-145)
--- NOTE | 2020-02-19 09:12 | REP ---
INDICATION: , unknown gestation, no care. COMPARISON: None. TECHNIQUE: Second trimester complete OB ultrasound, anatomy screen. FINDINGS: Scanning demonstrates a viable single intrauterine gestation in a breech lie. motion is observed and heart rate is recorded at 161 beats per minute. An anterior, grade zero placenta is seen without evidence of previa. The inferior tip of the placenta is 2.6 cm from the internal cervical os. Amniotic fluid is subjectively normal. Closed cervical length is measured at 4.2 cm transabdominally. No extrauterine abnormality is observed. There has been appropriate interval growth. No anomaly is seen. The following anatomic structures are identified and felt to be sonographically unremarkable: cranium, choroid plexus, cavum, cerebellum and posterior fossa, diaphragm, left-sided stomach, abdominal wall cord insertion, three-vessel umbilical cord, kidneys and bladder, spine, and upper and lower extremities. The cord is showed normal abdominal wall and placental insertion. The following structures are incompletely evaluated to the lie: Nuchal fold, profile view of the face, orbits, nose and lips, lungs, 4 chamber view, left and right ventricular outflow tracts. Biometry chart: BPD 4.5 cm; 19 weeks 5 days Head circumference 17.9 cm; 20 weeks 3 days Abdominal circumference 14.1 cm; 19 weeks 3 days Femur length 2.9 cm; 18 weeks 6 days Humeral length 3.0 cm; 19 weeks 6 days HC/AC ratio normal 1.27 (1.06-1.25) Cephalic index normal 0.68 (0.70-0.86) Estimated weight 288 grams, 0 pounds 10 ounces, percentile for weeks 19 days. IMPRESSION: 1. Single image intrauterine gestational in breech position with an anterior grade 0 placenta, no previa or abruption and visually normal amniotic fluid volume. 2. Average ultrasound age 19 weeks 5 days giving an EDC 07/10/2020. 3. Heart rate 161. Cervix 4.2 cm and closed. 4. Incomplete anatomy visualization. Nuchal fold, profile view, orbits, nose and lips, lungs, four-chamber view and the ventricular outflow tracts were not optimally visualized due to breech position. This may be recheck later in the 2nd trimester. <Electronically signed by Saúl Clark > 02/19/20 [id number]
[2020-02-19] MEDS ORDERED: FERR325T3 PO (09:21)
[2020-02-19] MEDS ORDERED: COLA100C5 PO (09:21)
[2020-02-19 09:22] VITALS: BP 123/69
== END 2020-02-19 09:32 | disposition home or self-care (01) ==
LOC: M ED 06:53
DX: O99.012 Anemia complicating pregnancy, second trimester (principal); Z3A.19 19 weeks gestation of pregnancy

== ENCOUNTER → 2020-02-23 | Outpatient (REF) | payer OTHER ==
[~2020-02-23] MED LIST changes: +COLA100C5 PO; +FERR325T3 PO
[2020-02-23 13:24] LABS: HEMATOCRIT 26.1 % (36.0-47.0); HEMOGLOBIN 7.3 g/dl (12.0-15.5); MEAN CORPUSCULAR HEMOGLOBIN 19.7 pg (27.0-33.0); MEAN CORPUSCULAR VOLUME 70.5 fl (80.0-96.0); PLATELET COUNT, AUTOMATED 251 10^3/uL (150-450); WHITE BLOOD COUNT 8.3 10^3/uL (4.0-10.0)
[2020-02-23 14:16] LABS: HEPATITIS C VIRUS ABY INDEX 0.1 INDEX (<0.8); HIV 1&2 SCREEN CENTAUR NEGATIVE (NEGATIVE)
== END ==
LOC: M PLALAB 11:45
PROVIDERS: ATTEND Obstetrics & Gynecology
DX: Z34.82 Encounter for supervision of other normal pregnancy, second trimester (principal); Z3A.00 Weeks of gestation of pregnancy not specified

== ENCOUNTER → 2020-02-24 | Outpatient (CLI) | payer OTHER ==
[~2020-02-24] MED LIST changes: +PROA1AER2 INH
--- NOTE | 2020-02-24 18:52 | REP ---
INDICATION: F/U ANATOMY. COMPARISON: 02/19/2020 TECHNIQUE: Follow-up Ob ultrasound for incomplete anatomy evaluation FINDINGS: Scanning demonstrates a viable single intrauterine gestation in a breech lie. motion is observed and heart rate is recorded at 133 beats per minute. An anterior, grade 1 placenta is seen without evidence of previa. Amniotic fluid is subjectively normal. Closed cervical length is measured at 4.1 cm transabdominally. No extrauterine abnormality is observed. There has been appropriate interval growth over the last 5 days since her previous ultrasound from the ED.. No anomaly is seen. The following anatomic structures are identified and felt to be sonographically unremarkable: cranium, choroid plexus, cavum, cerebellum and posterior fossa, face and profile, lungs, left and right ventricular outflow tract views, diaphragm, left-sided stomach, abdominal wall cord insertion, three-vessel umbilical cord, kidneys and bladder, spine, and upper and lower extremities. The four-chamber heart view is still not optimally visualized in this breech position. A single echogenic intracardiac focus is seen in the left ventricle of the heart. Biometry chart: BPD 4.6 cm; 19 weeks 6 days Head circumference 17.9 cm; 20 weeks 2 days Abdominal circumference 16 cm; 21 weeks 1 days Femur length 3.2 cm; 20 weeks 0 days Humeral length 3.1 cm; 20 weeks 1 days HC/AC ratio normal 1.12 Cephalic index normal 0.69 (normal range 0.7-0.86) Estimated weight 369 grams, 0 pounds 12 ounces, 55th percentile for weeks days. IMPRESSION: Single intrauterine gestation at 20 weeks 2 days by today's composite sonographic criteria. Expected gestational age estimate based on prior sonography is 20 weeks is 3 days. ANAMARIA by prior sonography 07/10/2020. No anomaly is noted in those visualized structures. The four-chamber heart view is still incompletely evaluated due to breech lie. A single intracardiac echogenic focus is present in the left ventricle. <Electronically signed by Saúl Clark > 02/24/20 [id number]
== END ==
LOC: M WHC 14:46
PROVIDERS: ATTEND Obstetrics & Gynecology
DX: Z34.82 Encounter for supervision of other normal pregnancy, second trimester (principal); Z3A.20 20 weeks gestation of pregnancy

== ENCOUNTER 2020-02-27 12:04 | Emergency (ER) | payer OTHER ==
[~2020-02-27] VITALS: Ht 165.1 cm; Wt 85.2 kg
[~2020-02-27 12:04] MED LIST changes: -PROA1AER2 INH
[2020-02-27] MEDS ORDERED: ALBUTEROL 90 MCG/ACT 8GM HFA INHALER INH ONE (12:45)
[2020-02-27] MEDS ORDERED: PROA1AER2 INH (13:42)
[2020-02-27 14:21] VITALS: BP 138/79
== END 2020-02-27 14:22 | disposition home or self-care (01) ==
LOC: M ED 12:04
DX: J02.9 Acute pharyngitis, unspecified (principal); J06.9 Acute upper respiratory infection, unspecified; Z79.51 Long term (current) use of inhaled steroids
CPT/HCPCS: 87880; 94640; 99284; U0003

== ENCOUNTER → 2020-03-23 | Outpatient (REF) | payer OTHER ==
[~2020-03-23] MED LIST changes: +PROA1AER2 INH; +RISP-7; -RISP0.5T3
== END ==
LOC: M SFHCWAGY 13:19
PROVIDERS: ATTEND Advanced Practice Midwife
DX: Z34.92 Encounter for supervision of normal pregnancy, unspecified, second trimester (principal); Z3A.00 Weeks of gestation of pregnancy not specified

== ENCOUNTER 2020-04-09 09:19 | Outpatient (CLI) | payer OTHER ==
[~2020-04-09] VITALS: Ht 165.1 cm; Wt 89.9 kg
[2020-04-09 09:35] VITALS: BP 103/64
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
== END 2020-04-09 11:15 | disposition home or self-care (01) ==
LOC: M LDO 09:19
PROVIDERS: ATTEND Specialist
DX: O26.892 Other specified pregnancy related conditions, second trimester (principal); R10.2 Pelvic and perineal pain; Z3A.26 26 weeks gestation of pregnancy

== ENCOUNTER → 2020-05-01 | Outpatient (CLI) | payer OTHER ==
[2020-05-01 12:55] LABS: MEAN CORPUSCULAR HEMOGLOBIN 19.6 pg (27.0-33.0); MEAN CORPUSCULAR HGB CONC 26.7 g/dl (32.0-36.5); MEAN CORPUSCULAR VOLUME 73.4 fl (80.0-96.0); PLATELET COUNT, AUTOMATED 249 10^3/uL (150-450); RED BLOOD COUNT 3.27 10^6/uL (4.00-5.40); WHITE BLOOD COUNT 8.3 10^3/uL (4.0-10.0)
[2020-05-01 13:08] LABS: HEMOGLOBIN 6.4 g/dl (12.0-15.5)
== END ==
LOC: M PLALAB 09:02
PROVIDERS: ATTEND Advanced Practice Midwife
DX: Z34.82 Encounter for supervision of other normal pregnancy, second trimester (principal)

== ENCOUNTER → 2020-05-08 | Outpatient (CLI) | payer OTHER | LOC: M LAB 08:15 | PROVIDERS: ATTEND Advanced Practice Midwife | DX: O99.013 Anemia complicating pregnancy, third trimester (principal); Z3A.00 Weeks of gestation of pregnancy not specified; D64.9 Anemia, unspecified; Z53.9 Procedure and treatment not carried out, unspecified reason ==

== ENCOUNTER → 2020-05-08 | Outpatient (CLI) | payer OTHER ==
[~2020-05-08] VITALS: Ht 165.1 cm; Wt 90.7 kg
[~2020-05-08] MED LIST changes: +IRON SUCROSE 500 MG in NS 250 ML OVER 4 HRS IV ONE
[2020-05-08 09:40] VITALS: BP 118/65
[2020-05-08 10:51] VITALS: BP 115/64
[2020-05-08 11:45] VITALS: BP 116/66
[2020-05-08 13:30] VITALS: BP 92/53
[2020-05-08 15:01] VITALS: BP 106/58
== END ==
LOC: M INFU 09:36
PROVIDERS: ATTEND Specialist
DX: D64.9 Anemia, unspecified (principal)
CPT/HCPCS: 96365; 96366; J1756

== ENCOUNTER 2020-05-23 08:36 | Outpatient (CLI) | payer OTHER ==
[~2020-05-23] VITALS: Ht 165.1 cm; Wt 93.2 kg
[2020-05-23 08:52] VITALS: BP 116/56
--- NOTE | 2020-05-23 10:18 | IPNPDOC ---
Text Note Date of Service The patient was seen on 05/23/20. 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 She has no specific complaints today. No regular ctx/LOF/vaginal bleeding, feels good movement. Vitals wnl, afebrile Gen: WDWN, NAD Abdomen: soft, gravid, NTTP. Fundal height 33cm NST reactive with +accels, -decels, mod love [place]: no ctx pattern Assessment: Virginia is a 29yo with SIUP at 33w1d with late entry to care (19wk u/s dating) doing well with normal OB visit. Normotensive, reassuring status. Uterine growth appropriate. Plan: -Printed out order for 3hr GTT and repeat CBC. Patient had Hgb 6.4 on 05/01 and had iron infusion on 05/08. I ordered 2 repeat iron infusions which the office will assist in scheduling. Patient given phone number to call lab to schedule 3hr GTT and knows to be fasting after midnight prior -RTC 2 weeks -All questions answered Yaritza Zamorano MD VS,Nathalie I+O VSNathalie I+O Vital Signs Date Time Temp Pulse Resp B/P (MAP) Pulse Ox O2 Delivery O2 Flow Rate FiO2 05/23/20 08:52 97.1 96 18 116/56 (76) Yaritza Zamorano MD May 23, 2020 10:18
== END 2020-05-23 09:55 | disposition home or self-care (01) ==
LOC: M LDO 08:36
PROVIDERS: ATTEND Obstetrics & Gynecology
DX: O26.893 Other specified pregnancy related conditions, third trimester (principal); Z3A.33 33 weeks gestation of pregnancy

== ENCOUNTER → 2020-05-23 | Outpatient (REF) | payer OTHER ==
[~2020-05-23] MED LIST changes: -IRON SUCROSE 500 MG in NS 250 ML OVER 4 HRS IV ONE
== END ==
LOC: M PLALAB 09:43
PROVIDERS: ATTEND Obstetrics & Gynecology
DX: O99.019 Anemia complicating pregnancy, unspecified trimester (principal); O99.810 Abnormal glucose complicating pregnancy

== ENCOUNTER → 2020-05-26 | Outpatient (REF) | payer OTHER ==
[2020-05-26 15:40] LABS: CHLAMYDIA DNA AMPLIFICATION NEGATIVE (NEGATIVE); GC DNA AMPLIFICATION NEGATIVE (NEGATIVE)
== END ==
LOC: M SFHCWAGY 13:44
PROVIDERS: ATTEND Advanced Practice Midwife
DX: Z3A.33 33 weeks gestation of pregnancy (principal)

== ENCOUNTER 2020-05-31 07:32 | Outpatient (CLI) | payer OTHER ==
[~2020-05-31] VITALS: Ht 165.1 cm; Wt 90.7 kg
[2020-05-31] MEDS ORDERED: IRON SUCROSE 500 MG in NS 250 ML OVER 4 HRS IV ONE (10:30)
[2020-05-31 10:50] VITALS: BP 97/53
[2020-05-31 12:30] VITALS: BP 95/55
[2020-05-31 13:30] VITALS: BP 102/56
[2020-05-31 15:05] VITALS: BP 104/57
[2020-05-31 15:30] VITALS: BP 132/75
== END 2020-05-31 15:30 | disposition home or self-care (01) ==
LOC: M INFU 07:32
PROVIDERS: ATTEND Specialist
DX: D64.9 Anemia, unspecified (principal)
CPT/HCPCS: 96365; 96366; J1756

== ENCOUNTER → 2020-05-31 | Outpatient (CLI) | payer OTHER ==
[2020-05-31 09:22] LABS: HEMATOCRIT 28.6 % (36.0-47.0); HEMOGLOBIN 8.1 g/dl (12.0-15.5); MEAN CORPUSCULAR HEMOGLOBIN 21.8 pg (27.0-33.0); MEAN CORPUSCULAR HGB CONC 28.3 g/dl (32.0-36.5); MEAN CORPUSCULAR VOLUME 77.1 fl (80.0-96.0); PLATELET COUNT, AUTOMATED 219 10^3/uL (150-450); RED BLOOD COUNT 3.71 10^6/uL (4.00-5.40); WHITE BLOOD COUNT 7.5 10^3/uL (4.0-10.0)
== END ==
LOC: M LAB 07:36
PROVIDERS: ATTEND Obstetrics & Gynecology
DX: O99.019 Anemia complicating pregnancy, unspecified trimester (principal); Z3A.00 Weeks of gestation of pregnancy not specified; D64.9 Anemia, unspecified

== ENCOUNTER → 2020-06-01 | Outpatient (REF) | payer OTHER | LOC: M PLALAB 17:52 | PROVIDERS: ATTEND Obstetrics & Gynecology | DX: O99.013 Anemia complicating pregnancy, third trimester (principal); Z3A.00 Weeks of gestation of pregnancy not specified; D64.9 Anemia, unspecified ==

== ENCOUNTER → 2020-06-07 | Outpatient (REF) | payer OTHER ==
[2020-06-07 13:53] LABS: HEMATOCRIT 32.2 % (36.0-47.0); HEMOGLOBIN 9.1 g/dl (12.0-15.5); MEAN CORPUSCULAR HEMOGLOBIN 22.5 pg (27.0-33.0); MEAN CORPUSCULAR HGB CONC 28.3 g/dl (32.0-36.5); MEAN CORPUSCULAR VOLUME 79.5 fl (80.0-96.0); PLATELET COUNT, AUTOMATED 252 10^3/uL (150-450); RED BLOOD COUNT 4.05 10^6/uL (4.00-5.40); WHITE BLOOD COUNT 8.7 10^3/uL (4.0-10.0)
== END ==
LOC: M PLALAB 11:36
PROVIDERS: ATTEND Obstetrics & Gynecology
DX: O99.013 Anemia complicating pregnancy, third trimester (principal)

== ENCOUNTER → 2020-06-13 | Outpatient (REF) | payer OTHER | LOC: M SFHCWAGY 16:47 | PROVIDERS: ATTEND Advanced Practice Midwife | DX: Z3A.37 37 weeks gestation of pregnancy (principal) ==

== ENCOUNTER → 2020-06-28 | Outpatient (CLI) | payer OTHER | LOC: M LABSMTC 11:25 | PROVIDERS: ATTEND Anesthesiology | DX: Z01.812 Encounter for preprocedural laboratory examination (principal); Z20.822 Contact with and (suspected) exposure to COVID-19 ==

== ENCOUNTER 2020-07-03 05:14 | Inpatient (IN) | payer OTHER ==
[2020-07-03] VITALS (8 sets, daily range): BP systolic 103–133; BP diastolic 56–68
[~2020-07-03] VITALS: Ht 165.1 cm; Wt 97.9 kg
[2020-07-03] MEDS ORDERED: BICITRA 30ML SOLN UDC PO ONE (05:35)
[2020-07-03] MEDS ORDERED: ceFAZolin SOD 2 GM in IV 1 EA IV ONE (05:35)
[2020-07-03] MEDS ORDERED: LR 1,000 ML IV SCH ×2 (05:55→09:35)
[2020-07-03] MEDS ORDERED: LACTATED RINGER'S 1000 ML IV ONE (05:55)
[2020-07-03 05:58] LABS: HEMATOCRIT 31.8 % (36.0-47.0); HEMOGLOBIN 9.4 g/dl (12.0-15.5); MEAN CORPUSCULAR HEMOGLOBIN 23.9 pg (27.0-33.0); MEAN CORPUSCULAR HGB CONC 29.6 g/dl (32.0-36.5); MEAN CORPUSCULAR VOLUME 80.9 fl (80.0-96.0); PLATELET COUNT, AUTOMATED 245 10^3/uL (150-450); RED BLOOD COUNT 3.93 10^6/uL (4.00-5.40); WHITE BLOOD COUNT 9.7 10^3/uL (4.0-10.0)
[2020-07-03] MEDS ORDERED: NALOXONE INJ 0.4MG/1ML VIAL (J2310 PER 1MG) IV PRN ×2 (07:41)
[2020-07-03] MEDS ORDERED: NALBUPHINE HCL 10 MG/ML AMP (J2300) IV PRN ×2 (07:41→09:35)
[2020-07-03] MEDS ORDERED: METOCLOPRAMIDE INJ 10MG/2ML VIAL (J2765 PER 1) IV PRN (07:41)
[2020-07-03] MEDS ORDERED: ONDANSETRON 4MG/2ML VIAL IV PRN ×2 (07:41→09:35)
[2020-07-03] MEDS ORDERED: diphenhydrAMINE 50MG/ML VIAL (J1200) IV PRN (07:41)
[2020-07-03] MEDS ORDERED: MORPHINE PRES-FREE INJ 10 MG/10 ML VIAL (J2274) As Ordered ONE (07:59)
[2020-07-03] MEDS ORDERED: fentaNYL 100 MCG/2 ML INJECTION (J3010) As Ordered ONE (07:59)
[2020-07-03] MEDS ORDERED: PHENYLephrine 500MCG 5ML (100MCG/ML) SYRINGE As Ordered ONE ×2 (08:00→08:13)
[2020-07-03] MEDS ORDERED: ONDANSETRON 4MG/2ML VIAL As Ordered ONE (08:12)
[2020-07-03] MEDS ORDERED: dexameTHASONE 4 MG/ML 1ML VIAL (J1100 PER 1MG) As Ordered ONE (08:12)
[2020-07-03] MEDS ORDERED: METOCLOPRAMIDE INJ 10MG/2ML VIAL (J2765 PER 1) As Ordered ONE (08:15)
[2020-07-03] MEDS ORDERED: ePHEDrine SULFATE 25 MG/5 ML(5MG/ML) SYRINGE As Ordered ONE (08:15)
[2020-07-03] MEDS ORDERED: OXYTOCIN INJ 10 UNITS/ML VIAL (J2590) As Ordered ONE (08:19)
[2020-07-03] MEDS ORDERED: KETOROLAC 60MG 2ML VIAL As Ordered ONE ×2 (08:47→08:52)
[2020-07-03] MEDS ORDERED: OXYTOCIN DRIP 30 UNITS in IV 1 EA IV SCH (08:58)
[2020-07-03] MEDS ORDERED: SIMETHICONE 80MG CHEW TAB PO PRN (09:00)
[2020-07-03] MEDS: PRENATAL VITAMINS CHEWABLE TABLET PO SCH (09:00)
[2020-07-03] MEDS ORDERED: PERCOCET 5MG/325MG TAB PO PRN (09:00)
[2020-07-03] MEDS ORDERED: ONDANSETRON 4 MG TAB PO PRN (09:00)
[2020-07-03] MEDS ORDERED: MEASLES,MUMPS,RUBELLA VACCINE INJ (MMR-II) (90707) SC SCH (09:00)
[2020-07-03] MEDS: DOCUSATE SODIUM 100MG CAPSULE PO SCH ×2 (09:00→20:28)
[2020-07-03] MEDS ORDERED: ACETAMINOPHEN 500 MG TAB PO PRN (09:00)
[2020-07-03] MEDS ORDERED: RHOGAM 300 MCG (1500 IU) INJ (J2790) IM SCH (09:00)
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
[2020-07-03] MEDS ORDERED: PERCOCET PO (09:10)
[2020-07-03] MEDS ORDERED: DOK1CAP7 PO (09:10)
[2020-07-03] MEDS ORDERED: IBUP80TA PO (09:10)
[2020-07-03] MEDS ORDERED: fentaNYL 100 MCG/2 ML INJECTION (J3010) IV PRN (09:35)
[2020-07-03] MEDS ORDERED: PROMETHAZINE INJ 25 MG/ML VIAL (J2550) IV ONE (12:50)
[2020-07-03] MEDS: KETOROLAC 30 MG/ML 1ML VIAL IV SCH ×2 (14:44→20:28)
[2020-07-04 02:00] VITALS: BP 114/58
[2020-07-04] MEDS: KETOROLAC 30 MG/ML 1ML VIAL IV SCH (02:22)
[2020-07-04 06:00] VITALS: BP 109/57
[2020-07-04 07:37] LABS: HEMATOCRIT 23.5 % (36.0-47.0); MEAN CORPUSCULAR HEMOGLOBIN 24.1 pg (27.0-33.0); MEAN CORPUSCULAR HGB CONC 29.8 g/dl (32.0-36.5); MEAN CORPUSCULAR VOLUME 80.8 fl (80.0-96.0); PLATELET COUNT, AUTOMATED 200 10^3/uL (150-450); RED BLOOD COUNT 2.91 10^6/uL (4.00-5.40); WHITE BLOOD COUNT 11.4 10^3/uL (4.0-10.0)
[2020-07-04] MEDS: DOCUSATE SODIUM 100MG CAPSULE PO SCH ×2 (07:52→20:04)
[2020-07-04] MEDS: PRENATAL VITAMINS CHEWABLE TABLET PO SCH (07:52)
--- NOTE | 2020-07-04 08:31 | IPNPDOC ---
Progress Note Date of Service: Jul 04, 2020 Day#: 1 Progress Note SUBJECT: Virginia is a 30-year-old female who presents for an elective primary section with a tubal ligation. She has been ambulating, voiding spontaneously without issue and tolerating regular diet. Her mother is supportive in the room. Patient has been seen by PFS. She denies any dizziness. OBJECTIVE: VITAL SIGNS: Within normal limits, afebrile. Alert and oriented times three. She is resting in bed. Breath sounds clear to auscultation. Abdomen: Fundus firm at U. Dressing intact. Minimal lochia. ASSESSMENT: Day 1 postoperative with tubal ligation PLAN: 1. Continue supportive nursing care. 2. Patient to ambulate. 3. Patient to shower today. 4. Anticipate discharge to home tomorrow. [facility]O Vital Signs Date Time Temp Pulse Resp B/P (MAP) Pulse Ox O2 Delivery O2 Flow Rate FiO2 07/04/20 07:53 18 07/04/20 06:00 97.9 59 109/57 (74) 98 Room Air I&O- Last 24 Hours up to 6 AM 07/04/20 06:00 Intake Total 750 ml Output Total 1300 ml Balance -550 ml Laboratory Data 24H LABS Laboratory Tests 2 07/04/20 07:04: Nucleated Red Blood Cells % (auto) 0.0 CBC/BMP Laboratory Tests 07/04/20 07:04 SALLIE LISA CNM Jul 04, 2020 08:30
[2020-07-04 10:00] VITALS: BP 118/75
[2020-07-04] MEDS: IBUPROFEN 800 MG TAB PO SCH ×2 (11:17→18:35)
[2020-07-04 14:00] VITALS: BP 115/66
[2020-07-04] MEDS: PERCOCET 5MG/325MG TAB PO PRN ×2 (15:49→21:49)
[2020-07-04 18:00] VITALS: BP 117/71
[2020-07-04 22:00] VITALS: BP 118/63
[2020-07-05] MEDS: IBUPROFEN 800 MG TAB PO SCH ×2 (02:32→11:02)
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
[2020-07-05 05:52] VITALS: BP 116/62
[2020-07-05] MEDS: PERCOCET 5MG/325MG TAB PO PRN (08:09)
[2020-07-05] MEDS: DOCUSATE SODIUM 100MG CAPSULE PO SCH (08:09)
[2020-07-05] MEDS: PRENATAL VITAMINS CHEWABLE TABLET PO SCH (08:29)
[2020-07-06] MEDS ORDERED: IBUP1TAB7 PO (16:32)
== END 2020-07-05 11:30 | disposition home or self-care (01) | DRG 540 ==
LOC: M LDI 05:14 → M OBS 10:01
PROVIDERS: ADMIT Obstetrics & Gynecology; ATTEND Obstetrics & Gynecology
PROC: 0UB70ZZ Excision of Bilateral Fallopian Tubes, Open Approach (ICD-10-PCS; 2020-07-03)
PROC: 10D00Z1 Extraction of Products of Conception, Low, Open Approach (ICD-10-PCS; principal; 2020-07-03 07:30)
DX: O99.354 Diseases of the nervous system complicating childbirth (principal); G89.4 Chronic pain syndrome; Z3A.39 39 weeks gestation of pregnancy; Z87.828 Personal history of other (healed) physical injury and trauma; Z37.0 Single live birth; Z30.2 Encounter for sterilization; M54.5 Low back pain; O26.893 Other specified pregnancy related conditions, third trimester

== ENCOUNTER 2020-08-25 18:56 | Emergency (ER) | payer OTHER ==
[~2020-08-25] VITALS: Ht 165.1 cm; Wt 97.8 kg
[~2020-08-25 18:56] MED LIST changes: +DOK1CAP7 PO; +IBUP1TAB7 PO; +IBUP80TA PO; +PERCOCET PO
[2020-08-25 21:08] LABS: BASO % 0.3 % (0.0-1.0); HEMATOCRIT 33.4 % (36.0-47.0); HEMOGLOBIN 9.8 g/dl (12.0-15.5); LYMPH # 1.1 10^3/uL (1.5-5.0); MEAN CORPUSCULAR HEMOGLOBIN 22.5 pg (27.0-33.0); MEAN CORPUSCULAR HGB CONC 29.3 g/dl (32.0-36.5); MEAN CORPUSCULAR VOLUME 76.8 fl (80.0-96.0); MONO # 1.1 10^3/uL (0.0-0.8); NEUTROPHILS # 11.4 10^3/uL (1.5-8.5); NEUTROPHILS % 83.1 % (36.0-66.0); PLATELET COUNT, AUTOMATED 279 10^3/uL (150-450); RED BLOOD COUNT 4.35 10^6/uL (4.00-5.40); WHITE BLOOD COUNT 13.7 10^3/uL (4.0-10.0)
[2020-08-25 21:13] LABS: ALT/SGPT 24 U/L (12-78); BILIRUBIN,DIRECT 0.2 MG/DL (0.0-0.2); BILIRUBIN,TOTAL 0.9 MG/DL (0.2-1.0); LIPASE 41 U/L (73-393); TOTAL PROTEIN 7.7 GM/DL (6.4-8.2)
[2020-08-25] MEDS ORDERED: MORPHINE 4 MG/ML 1ML VIAL/SYRINGE (J2270) IV ONE (21:20)
[2020-08-25] MEDS ORDERED: ONDANSETRON 4MG/2ML VIAL IV ONE (21:20)
[2020-08-25] MEDS ORDERED: NS 1,000 ML IV ONE (21:20)
[2020-08-25 21:42] LABS: HCG, SERUM QUANTITATIVE < 1.0 MIU/ML
--- NOTE | 2020-08-25 22:39 | REPVR ---
PROCEDURE INFORMATION: Exam: US Abdomen, Limited; Right Upper Quadrant Exam date and time: 08/25/2020 10:10 PM Age: 30 years old Clinical indication: Abdominal pain; Additional info: Ruq pain/flank pain TECHNIQUE: Imaging protocol: US abdomen. Real time ultrasound with image documentation. Limited exam focused on the right upper quadrant. COMPARISON: GALLBLADDER US 03/05/2019 1:08 AM FINDINGS: Liver: The liver demonstrates a small ovoid hyperechoic foci measuring up to 8 x 12 mm consistent with hemangiomas. Gallbladder: The gallbladder demonstrates no stones and no wall thickening. Common bile duct: The CBD measures 4 mm. Pancreas: The pancreas is normal. Right kidney: The right kidney is normal measuring 13.0 cm with no hydronephrosis. IMPRESSION: 1. Small hyperechoic hepatic nodules consistent with hemangiomas measuring up to 12 mm. 2. Otherwise negative right upper quadrant sonogram. No hydronephrosis. Electronically signed by: Kenrick Fisher On 08/25/2020 22:39:38 PM
[2020-08-25] MEDS ORDERED: ISOVUE-370 76% 100ML VIAL As Ordered ONE (22:53)
--- NOTE | 2020-08-25 23:25 | REPVR ---
PROCEDURE INFORMATION: Exam: CT Abdomen And Pelvis With Contrast Exam date and time: 08/25/2020 10:48 PM Age: 30 years old Clinical indication: Abdominal pain; Localized; Right; Additional info: Right abd pain, leukocytosis TECHNIQUE: Imaging protocol: Computed tomography of the abdomen and pelvis with contrast. Radiation optimization: All CT scans at this facility use at least one of these dose optimization techniques: automated exposure control; mA and/or kV adjustment per patient size (includes targeted exams where dose is matched to clinical indication); or iterative reconstruction. Contrast material: ISO; Contrast volume: 100 ml; Contrast route: INTRAVENOUS (IV); COMPARISON: CT ABD/PEL W/IV CONTRAST ONLY 03/28/2019 12:43 AM FINDINGS: Liver: Normal. No mass. Gallbladder and bile ducts: Normal. No calcified stones. No ductal dilation. Pancreas: Normal. No ductal dilation. Spleen: The spleen measures 13.2 cm. Adrenal glands: Normal. No mass. Kidneys and ureters: Nonobstructing left renal calculi measuring up to 6 mm in the lower pole. Stomach and bowel: Unremarkable. No obstruction. No mucosal thickening. Appendix: A normal retrocecal appendix is seen extending along the medial aspect of the hepatic tip. Intraperitoneal space: Trace fluid in the cul-de-sac which is physiologic in amount. Vasculature: Unremarkable. No abdominal aortic aneurysm. Lymph nodes: Unremarkable. No enlarged lymph nodes. Urinary bladder: Unremarkable as visualized. Reproductive: Unremarkable as visualized. Bones/joints: Unremarkable. No acute fracture. Soft tissues: Unremarkable. IMPRESSION: 1. Nonobstructing left renal calculi. 2. Otherwise negative CT abdomen/pelvis. A normal retrocecal appendix is seen. Electronically signed by: Kenrick Fisher On 08/25/2020 23:25:14 PM
[2020-08-26] MEDS ORDERED: PEPC1TAB5 PO (00:02)
[2020-08-26] MEDS ORDERED: ONDA4TAB6 PO (00:02)
[2020-08-26 00:12] VITALS: BP 109/67
--- NOTE | 2020-08-26 07:53 | ED PDOC ---
Post-Departure Follow-Up radiology rpeor tfaxed to April Walters MD August 26, 2020 07:53
== END 2020-08-26 00:13 | disposition home or self-care (01) ==
LOC: M ED 18:56
DX: R10.13 Epigastric pain (principal); N20.0 Calculus of kidney
CPT/HCPCS: 36415; 74177; 76705; 80047; 80076; 81001; 83690; 84702; 85025; 96361; 96374; 96375; 99284; J2270; J2405; Q9967

== ENCOUNTER → 2022-01-15 | Outpatient (CLI) | payer OTHER ==
[~2022-01-15] MED LIST changes: +DOK1CAP4 PO; -DOK1CAP7 PO; +ONDA4TAB6 PO; +PEPC1TAB5 PO
[2022-01-15 11:19] LABS: BASO % 0.9 % (0.0-1.0); EOS # 0.1 10^3/uL (0.0-0.5); EOS % 1.5 % (0.0-3.0); HEMATOCRIT 25.8 % (36.0-47.0); HEMOGLOBIN 7.1 g/dl (12.0-15.5); LYMPH # 1.5 10^3/uL (1.5-5.0); LYMPH % 33.8 % (24.0-44.0); MEAN CORPUSCULAR HEMOGLOBIN 19.1 pg (27.0-33.0); MEAN CORPUSCULAR HGB CONC 27.5 g/dl (32.0-36.5); MEAN CORPUSCULAR VOLUME 69.5 fl (80.0-96.0); MONO # 0.4 10^3/uL (0.0-0.8); MONO % 9.5 % (2.0-8.0); NEUTROPHILS # 2.4 10^3/uL (1.5-8.5); NEUTROPHILS % 53.9 % (36.0-66.0); PLATELET COUNT, AUTOMATED 346 10^3/uL (150-450); RED BLOOD COUNT 3.71 10^6/uL (4.00-5.40); WHITE BLOOD COUNT 4.5 10^3/uL (4.0-10.0)
[2022-01-15 12:14] LABS: ALBUMIN 3.8 GM/DL (3.2-5.2); ALT/SGPT 11 U/L (12-78); AMYLASE 30 U/L (25-115); BILIRUBIN,TOTAL 0.5 MG/DL (0.2-1.0); BLOOD UREA NITROGEN 9 MG/DL (7-18); CALCIUM LEVEL 9.1 MG/DL (8.5-10.1); CARBON DIOXIDE LEVEL 28 MEQ/L (21-32); CHLORIDE LEVEL 108 MEQ/L (98-107); CREATININE FOR GFR 0.73 MG/DL (0.55-1.30); GLOMERULAR FILTRATION RATE > 60.0 (>60); GLUCOSE, FASTING 83 MG/DL (70-100); LIPASE 99 U/L (73-393); POTASSIUM SERUM 4.1 MEQ/L (3.5-5.1); SODIUM LEVEL 139 MEQ/L (136-145); TOTAL PROTEIN 7.5 GM/DL (6.4-8.2)
== END ==
LOC: M LAB 10:45
PROVIDERS: ATTEND Physician Assistant Medical
DX: R11.2 Nausea with vomiting, unspecified (principal)

== ENCOUNTER → 2022-02-14 | Outpatient (CLI) | payer OTHER | LOC: M LABSMTC 10:24 | PROVIDERS: ATTEND Anesthesiology | DX: Z01.812 Encounter for preprocedural laboratory examination (principal); Z20.822 Contact with and (suspected) exposure to COVID-19 ==

== ENCOUNTER 2022-02-19 10:06 | Day surgery (SDC) | payer OTHER ==
[~2022-02-19] VITALS: Ht 165.1 cm; Wt 86.2 kg
[~2022-02-19 10:06] MED LIST changes: +NS 1,000 ML IV ONE
[2022-02-19] MEDS ORDERED: propofoL 200 MG/20 ML VIAL As Ordered ONE ×2 (11:52→12:28)
[2022-02-19] MEDS ORDERED: LIDOCAINE 2% 100MG/5ML SDV (FOR ANES.) As Ordered ONE (11:52)
[2022-02-19] MEDS ORDERED: fentaNYL 100 MCG/2 ML INJECTION As Ordered ONE (11:53)
[2022-02-19 13:10] VITALS: BP 104/61
== END 2022-02-19 13:22 | disposition home or self-care (01) ==
LOC: M OPP 10:06
PROVIDERS: ATTEND Internal Medicine Gastroenterology
DX: Z12.11 Encounter for screening for malignant neoplasm of colon (principal); Z86.010 Personal history of colon polyps; D50.9 Iron deficiency anemia, unspecified; R11.2 Nausea with vomiting, unspecified
CPT/HCPCS: 43239; 88305; J3010

== ENCOUNTER → 2022-02-19 | Outpatient (REF) | payer OTHER ==
[2022-02-19 17:50] LABS: BASO # 0.1 10^3/uL (0.0-0.2); EOS % 0.8 % (0.0-3.0); HEMATOCRIT 28.5 % (36.0-47.0); HEMOGLOBIN 7.4 g/dl (12.0-15.5); LYMPH # 1.6 10^3/uL (1.5-5.0); LYMPH % 32.1 % (24.0-44.0); MEAN CORPUSCULAR HEMOGLOBIN 18.2 pg (27.0-33.0); MONO # 0.5 10^3/uL (0.0-0.8); MONO % 9.5 % (2.0-8.0); NEUTROPHILS # 2.7 10^3/uL (1.5-8.5); NEUTROPHILS % 56.4 % (36.0-66.0); PLATELET COUNT, AUTOMATED 284 10^3/uL (150-450); RED BLOOD COUNT 4.07 10^6/uL (4.00-5.40); WHITE BLOOD COUNT 4.8 10^3/uL (4.0-10.0)
[2022-02-19 18:25] LABS: PERCENT SATURATION 3.9 % (13.2-45.0)
== END ==
LOC: M LAB REF 16:49
PROVIDERS: ATTEND Family Medicine Addiction Medicine
DX: D50.9 Iron deficiency anemia, unspecified (principal)

== ENCOUNTER → 2022-03-04 | Outpatient (CLI) | payer OTHER ==
[~2022-03-04] MED LIST changes: -NS 1,000 ML IV ONE
[2022-03-04 16:41] LABS: HEMATOCRIT 27.7 % (36.0-47.0); HEMOGLOBIN 7.2 g/dl (12.0-15.5); MEAN CORPUSCULAR HEMOGLOBIN 18.2 pg (27.0-33.0); MEAN CORPUSCULAR VOLUME 70.1 fl (80.0-96.0); RED BLOOD COUNT 3.95 10^6/uL (4.00-5.40); WHITE BLOOD COUNT 5.6 10^3/uL (4.0-10.0)
== END ==
LOC: M RAD 15:38
PROVIDERS: ATTEND Obstetrics & Gynecology
DX: N93.9 Abnormal uterine and vaginal bleeding, unspecified (principal); N85.4 Malposition of uterus

== ENCOUNTER → 2022-04-17 | Outpatient (REF) | payer OTHER | LOC: M SFHCWAGY 13:26 | PROVIDERS: ATTEND Obstetrics & Gynecology | DX: Z12.4 Encounter for screening for malignant neoplasm of cervix (principal); N93.9 Abnormal uterine and vaginal bleeding, unspecified ==

== ENCOUNTER → 2022-04-22 | Outpatient (CLI) | payer OTHER | LOC: M LABSMTC 09:21 | PROVIDERS: ATTEND Anesthesiology | DX: Z01.812 Encounter for preprocedural laboratory examination (principal); Z20.822 Contact with and (suspected) exposure to COVID-19 ==

== ENCOUNTER 2022-04-24 11:26 | Day surgery (SDC) | payer OTHER ==
[~2022-04-24] VITALS: Ht 167.6 cm; Wt 85.3 kg
[~2022-04-24 11:26] MED LIST changes: +ceFAZolin SOD 2 GM in IV 1 EA IV ONE
[2022-04-24] MEDS ORDERED: LR 1,000 ML IV SCH ×3 (11:50→16:00)
[2022-04-24 12:12] LABS: HEMATOCRIT 26.2 % (36.0-47.0); HEMOGLOBIN 7.1 g/dl (12.0-15.5); MEAN CORPUSCULAR HEMOGLOBIN 18.4 pg (27.0-33.0); MEAN CORPUSCULAR HGB CONC 27.1 g/dl (32.0-36.5); MEAN CORPUSCULAR VOLUME 67.9 fl (80.0-96.0); PLATELET COUNT, AUTOMATED 262 10^3/uL (150-450); RED BLOOD COUNT 3.86 10^6/uL (4.00-5.40); WHITE BLOOD COUNT 4.6 10^3/uL (4.0-10.0)
[2022-04-24] MEDS ORDERED: METHYLENE BLUE 0.5% (5MG/ML) 10 ML AMP (PROVAYBLUE) As Ordered ONE (13:49)
[2022-04-24] MEDS ORDERED: fentaNYL 250 MCG/5 ML INJECTION As Ordered ONE (13:53)
[2022-04-24] MEDS ORDERED: propofoL 200 MG/20 ML VIAL As Ordered ONE (13:53)
[2022-04-24] MEDS ORDERED: ROCURONIUM BROMIDE 50MG/5ML VIAL As Ordered ONE ×2 (13:53→15:15)
[2022-04-24] MEDS ORDERED: LIDOCAINE 2% 100MG/5ML SDV (FOR ANES.) As Ordered ONE (13:53)
[2022-04-24] MEDS ORDERED: MIDAZOLAM INJ 2MG/2ML VIAL As Ordered ONE (13:53)
[2022-04-24] MEDS ORDERED: LACRILUBE (AKWA TEARS) OPHTH OINT 3.5GM As Ordered ONE (14:26)
[2022-04-24] MEDS: BUPIVACAINE HCL 0.25% 30ML VIAL As Ordered ONE ×2 (14:50→16:07)
[2022-04-24] MEDS ORDERED: ACETAMINOPHEN 1000MG 100ML IV BAG As Ordered ONE (15:09)
[2022-04-24] MEDS ORDERED: SUGAMMADEX SODIUM 500 MG/5 ML VIAL (BRIDION) As Ordered ONE (15:09)
[2022-04-24] MEDS ORDERED: ONDANSETRON 4MG 2ML VIAL As Ordered ONE (15:09)
[2022-04-24] MEDS ORDERED: METOCLOPRAMIDE INJ 10MG/2ML VIAL As Ordered ONE (15:09)
[2022-04-24] MEDS ORDERED: KETOROLAC 60MG 2ML VIAL As Ordered ONE (15:09)
[2022-04-24] MEDS ORDERED: HYDROmorphone HCL 2MG/ML 1ML VIAL As Ordered ONE (15:30)
[2022-04-24] MEDS ORDERED: HYDROMORPHONE HCL 0.5 MG/ 0.5 ML SYRINGE IV PRN (15:50)
[2022-04-24] MEDS ORDERED: METOCLOPRAMIDE INJ 10MG/2ML VIAL IV PRN (15:50)
[2022-04-24] MEDS ORDERED: oxyCODONE 5MG TAB PO PRN (15:50)
[2022-04-24] MEDS ORDERED: ONDANSETRON 4MG 2ML VIAL IV PRN ×2 (15:50→16:00)
[2022-04-24] MEDS ORDERED: fentaNYL 100 MCG/2 ML INJECTION IV PRN (15:50)
[2022-04-24] MEDS ORDERED: MORPHINE 4 MG/ML 1ML VIAL IV PRN (16:00)
[2022-04-24] MEDS ORDERED: PROMETHAZINE 25MG/ML 1ML VIAL IV PRN (16:00)
[2022-04-24] MEDS ORDERED: PERCOCET 5MG/325MG TAB PO PRN ×2 (16:00)
[2022-04-24] MEDS ORDERED: IBUP80TA PO (16:06)
[2022-04-24] MEDS ORDERED: PERCOCET PO (16:06)
[2022-04-24] MEDS ORDERED: COLA100C5 PO (16:06)
[2022-04-24 17:20] VITALS: BP 124/70
[2022-04-24 17:50] VITALS: BP 126/71
[2022-04-24 18:50] VITALS: BP 130/72
[2022-04-24] MEDS ORDERED: METOCLOPRAMIDE INJ 10MG/2ML VIAL IV ONE (18:50)
[2022-04-24 19:40] VITALS: BP 116/67
[2022-04-24] MEDS: KETOROLAC 30 MG/ML 1ML VIAL IV SCH (21:09)
[2022-04-24] MEDS: DOCUSATE SODIUM 100MG CAPSULE PO SCH (21:10)
[2022-04-24 22:00] VITALS: BP 126/72
[2022-04-25] MEDS: KETOROLAC 30 MG/ML 1ML VIAL IV SCH ×2 (02:40→09:03)
[2022-04-25 05:53] VITALS: BP 124/61
[2022-04-25 06:55] LABS: BASO % 0.3 % (0.0-1.0); LYMPH # 1.2 10^3/uL (1.5-5.0); LYMPH % 15.6 % (24.0-44.0); MEAN CORPUSCULAR HEMOGLOBIN 18.3 pg (27.0-33.0); MEAN CORPUSCULAR HGB CONC 27.1 g/dl (32.0-36.5); MEAN CORPUSCULAR VOLUME 67.6 fl (80.0-96.0); MONO # 0.5 10^3/uL (0.0-0.8); MONO % 6.5 % (2.0-8.0); NEUTROPHILS # 5.8 10^3/uL (1.5-8.5); NEUTROPHILS % 77.2 % (36.0-66.0); PLATELET COUNT, AUTOMATED 269 10^3/uL (150-450); RED BLOOD COUNT 3.49 10^6/uL (4.00-5.40); WHITE BLOOD COUNT 7.5 10^3/uL (4.0-10.0)
[2022-04-25 07:27] LABS: HEMOGLOBIN 6.4 g/dl (12.0-15.5)
[2022-04-25 07:28] LABS: HEMATOCRIT 23.6 % (36.0-47.0)
[2022-04-25] MEDS: DOCUSATE SODIUM 100MG CAPSULE PO SCH (09:03)
[2022-04-25 10:00] VITALS: BP 130/76
[2022-04-25] MEDS ORDERED: SIME180C25 PO (11:14)
[2022-04-25] MEDS ORDERED: IBUPROFEN 800 MG TAB PO SCH (17:00)
== END 2022-04-25 11:33 | disposition home or self-care (01) ==
LOC: M SDC 11:26 → M OBS 17:20 → M SDC 04-25 11:33
PROVIDERS: ATTEND Obstetrics & Gynecology
DX: N93.9 Abnormal uterine and vaginal bleeding, unspecified (principal); R10.2 Pelvic and perineal pain; N80.00 Endometriosis of the uterus, unspecified; K21.9 Gastro-esophageal reflux disease without esophagitis; K90.0 Celiac disease; D50.9 Iron deficiency anemia, unspecified; G43.909 Migraine, unspecified, not intractable, without status migrainosus; F43.10 Post-traumatic stress disorder, unspecified
CPT/HCPCS: 36415; 58571; 84702; 85025; 85027; 86850; 86900; 86901; 88307; 96374; 96375; 96376; J1100; J2405; S2900

== ENCOUNTER 2023-04-04 09:43 | Day surgery (SDC) | payer OTHER ==
[~2023-04-04] VITALS: Ht 165.1 cm; Wt 93.4 kg
[~2023-04-04 09:43] MED LIST changes: +DICY-61 PO; -DICY10CA13 PO; +NS 1,000 ML IV ONE; +SIME180C25 PO; +TOPI-21; -TOPI50TA9; +VITMTA PO; -ceFAZolin SOD 2 GM in IV 1 EA IV ONE
[2023-04-04 11:12] VITALS: TEMP 97.6
[2023-04-04 11:25] VITALS: BP 116/56; O2SAT 98
== END 2023-04-04 11:33 | disposition home or self-care (01) ==
LOC: M OPP 09:43
PROVIDERS: ATTEND Internal Medicine Gastroenterology
DX: Z86.010 Personal history of colon polyps (principal); K30 Functional dyspepsia

== ENCOUNTER 2023-06-11 23:41 | Emergency (ER) | payer OTHER ==
[~2023-06-11 23:41] MED LIST changes: -NS 1,000 ML IV ONE; -RISP-7; +RISP0.5T82
[2023-06-11 23:43] VITALS: BP 125/83; TEMP 98.6; O2SAT 97
[2023-06-12 00:20] LABS: BASO % 0.6 % (0.0-1.0); EOS # 0.1 10^3/uL (0.0-0.5); HEMATOCRIT 37.7 % (36.0-47.0); HEMOGLOBIN 12.5 g/dl (12.0-15.5); LYMPH # 1.5 10^3/uL (1.5-5.0); LYMPH % 30.2 % (24.0-44.0); MEAN CORPUSCULAR HEMOGLOBIN 29.3 pg (27.0-33.0); MEAN CORPUSCULAR HGB CONC 33.2 g/dl (32.0-36.5); MEAN CORPUSCULAR VOLUME 88.5 fl (80.0-96.0); MONO # 0.5 10^3/uL (0.0-0.8); MONO % 9.3 % (2.0-8.0); NEUTROPHILS # 2.9 10^3/uL (1.5-8.5); NEUTROPHILS % 57.7 % (36.0-66.0); PLATELET COUNT, AUTOMATED 248 10^3/uL (150-450); RED BLOOD COUNT 4.26 10^6/uL (4.00-5.40)
[2023-06-12 00:36] LABS: LIPASE 30 U/L (12-53)
[2023-06-12 00:38] LABS: ALBUMIN 3.9 G/DL (3.2-5.2); ALKALINE PHOSPHATASE 99 U/L (46-116); ALT/SGPT 13 U/L (7.0-40); AST/SGOT 16 U/L (<34); BILIRUBIN,DIRECT < 0.1 MG/DL (<0.4); BILIRUBIN,TOTAL 0.3 MG/DL (0.3-1.2); BLOOD UREA NITROGEN 10 MG/DL (9-23); CALCIUM LEVEL 8.8 MG/DL (8.5-10.1); CARBON DIOXIDE LEVEL 24 MMOL/L (20-31); CHLORIDE LEVEL 107 MMOL/L (98-107); GLOMERULAR FILTRATION RATE > 60.0 (>60); GLUCOSE, FASTING 87 MG/DL (60-100); POTASSIUM SERUM 3.6 MMOL/L (3.5-5.1); SODIUM LEVEL 137 MMOL/L (136-145)
[2023-06-12 02:10] LABS: HCG, SERUM QUALITATIVE NEGATIVE (NEGATIVE)
[2023-06-12] MEDS: ONDANSETRON 4MG 2ML VIAL IV ONE (03:23)
[2023-06-12] MEDS: KETOROLAC 30 MG/ML 1ML VIAL IV ONE (03:23)
[2023-06-12] MEDS: NS 1,000 ML IV ONE (03:24)
[2023-06-12] MEDS ORDERED: LEVS0.124 SL (04:23)
== END 2023-06-12 06:23 | disposition home or self-care (01) ==
LOC: M ED 23:41
DX: R10.9 Unspecified abdominal pain (principal); Z79.899 Other long term (current) drug therapy
CPT/HCPCS: 76705; 80048; 80076; 83690; 84703; 85025; 93041; 96361; 96374; 99284; J1885; J2405

== ENCOUNTER → 2023-08-13 | Outpatient (REF) | payer OTHER ==
[~2023-08-13] MED LIST changes: +LEVS0.124 SL
[2023-08-13 18:36] LABS: ALBUMIN 3.7 G/DL (3.2-5.2); ALKALINE PHOSPHATASE 76 U/L (46-116); ALT/SGPT 12 U/L (7.0-40); AST/SGOT 12 U/L (<34); BILIRUBIN,TOTAL 0.5 MG/DL (0.3-1.2); BLOOD UREA NITROGEN 7 MG/DL (9-23); CARBON DIOXIDE LEVEL 27 MMOL/L (20-31); CHLORIDE LEVEL 106 MMOL/L (98-107); CHOLESTEROL LEVEL 148 MG/DL (<200); CHOLESTEROL RISK RATIO 3.76 (<5); CREATININE FOR GFR 0.66 MG/DL (0.55-1.30); GLOMERULAR FILTRATION RATE > 60.0 (>60); GLUCOSE, FASTING 79 MG/DL (60-100); HDL CHOLESTEROL 39.3 MG/DL (>40); LDL CHOLESTEROL 82.5 MG/DL (<100); NON-HDL-C 108.7 MG/DL; POTASSIUM SERUM 4.2 MMOL/L (3.5-5.1); SODIUM LEVEL 141 MMOL/L (136-145); TOTAL PROTEIN 7.1 G/DL (5.7-8.2); TRIGLYCERIDES LEVEL 131 MG/DL (<150)
[2023-08-13 18:38] LABS: THYROID STIMULATING HORMONE 1.442 uIU/ML (0.55-4.78)
== END ==
LOC: M LAB REF 16:50
PROVIDERS: ATTEND Family Medicine Addiction Medicine
DX: E66.3 Overweight (principal)

== ENCOUNTER 2024-05-30 16:58 | Emergency (ER) | payer OTHER ==
[~2024-05-30] VITALS: Ht 165.1 cm; Wt 91.2 kg
[~2024-05-30 16:58] MED LIST changes: +ONDA-282 PO; -ONDA4TAB6 PO; -SIME180C25 PO; +SIME1CAP4 PO
[2024-05-30 17:04] VITALS: BP 130/83; TEMP 98.1; O2SAT 96
[2024-05-30 17:56] LABS: BASO % 0.5 % (0.0-1.0); EOS # 0.1 10^3/uL (0.0-0.5); EOS % 0.9 % (0.0-3.0); HEMATOCRIT 36.7 % (36.0-47.0); HEMOGLOBIN 12.1 g/dl (12.0-15.5); LYMPH # 1.9 10^3/uL (1.5-5.0); LYMPH % 24.2 % (24.0-44.0); MEAN CORPUSCULAR HEMOGLOBIN 29.3 pg (27.0-33.0); MEAN CORPUSCULAR VOLUME 88.9 fl (80.0-96.0); MONO # 0.5 10^3/uL (0.0-0.8); MONO % 7.1 % (2.0-8.0); NEUTROPHILS # 5.1 10^3/uL (1.5-8.5); NEUTROPHILS % 66.9 % (36.0-66.0); PLATELET COUNT, AUTOMATED 254 10^3/uL (150-450); RED BLOOD COUNT 4.13 10^6/uL (4.00-5.40); WHITE BLOOD COUNT 7.6 10^3/uL (4.0-10.0)
[2024-05-30 18:29] LABS: LIPASE 27 U/L (12-53)
[2024-05-30 18:56] LABS: ALBUMIN 3.7 G/DL (3.2-5.2); ALKALINE PHOSPHATASE 69 U/L (35-104); ALT/SGPT < 9 U/L (7.0-40); AST/SGOT 12 U/L (<34); BILIRUBIN,DIRECT 0.1 MG/DL (<0.4); BILIRUBIN,TOTAL 0.4 MG/DL (0.3-1.2); BLOOD UREA NITROGEN 10 MG/DL (9-23); CALCIUM LEVEL 8.9 MG/DL (8.5-10.1); CARBON DIOXIDE LEVEL 28 MMOL/L (20-31); CHLORIDE LEVEL 107 MMOL/L (98-107); CREATININE FOR GFR 0.74 MG/DL (0.55-1.30); GLOMERULAR FILTRATION RATE > 60.0 (>60); POTASSIUM SERUM 3.7 MMOL/L (3.5-5.1); SODIUM LEVEL 142 MMOL/L (136-145)
[2024-05-30 18:57] LABS: GLUCOSE, FASTING 96 MG/DL (60-100)
== END 2024-05-30 18:11 | disposition left against medical advice (07) ==
LOC: M ED 16:58
DX: Z53.21 Procedure and treatment not carried out due to patient leaving prior to being seen by health care provider (principal)

== ENCOUNTER 2024-10-14 10:22 | Day surgery (SDC) | payer MEDICAID, OTHER ==
[~2024-10-14] VITALS: Ht 165.1 cm; Wt 89.4 kg
[~2024-10-14 10:22] MED LIST changes: +GLYCOPYRROLATE INJ 0.2 MG/ML 2 ML VIAL As Ordered ONE; +LAMO-18 PO; -LAMO25TA4 PO; +LIDOCAINE 2% 100 MG/5 ML SDV (FOR ANES.) As Ordered ONE
[2024-10-14 12:46] VITALS: TEMP 97.4
[2024-10-14 13:10] VITALS: BP 126/57; O2SAT 96
== END 2024-10-14 13:12 | disposition home or self-care (01) ==
LOC: M OPP 10:22
PROVIDERS: ATTEND Internal Medicine Gastroenterology
DX: K64.8 Other hemorrhoids (principal); Z86.0100 Personal history of colon polyps, unspecified; R12 Heartburn
CPT/HCPCS: 43235; 45378; J1596; J3010

== ENCOUNTER 2024-11-29 19:50 | Emergency (ER) | payer OTHER ==
[~2024-11-29] VITALS: Ht 165.1 cm; Wt 90.4 kg
[~2024-11-29 19:50] MED LIST changes: -GLYCOPYRROLATE INJ 0.2 MG/ML 2 ML VIAL As Ordered ONE; -LIDOCAINE 2% 100 MG/5 ML SDV (FOR ANES.) As Ordered ONE
[2024-11-29 19:52] VITALS: BP 124/82; TEMP 97.4; O2SAT 97
== END 2024-11-29 22:21 | disposition left against medical advice (07) ==
LOC: M ED 19:50
DX: Z53.21 Procedure and treatment not carried out due to patient leaving prior to being seen by health care provider (principal)

== ENCOUNTER 2024-12-20 04:42 | Emergency (ER) | payer OTHER ==
[~2024-12-20] VITALS: Ht 165.1 cm; Wt 88.6 kg
[2024-12-20 06:09] LABS: BASO # 0.0 10^3/uL (0.0-0.2); BASO % 0.5 % (0.0-1.0); EOS # 0.1 10^3/uL (0.0-0.5); EOS % 1.0 % (0.0-3.0); LYMPH # 1.7 10^3/uL (1.5-5.0); LYMPH % 28.3 % (24.0-44.0); MONO # 0.5 10^3/uL (0.0-0.8); MONO % 9.0 % (2.0-8.0); NEUTROPHILS # 3.6 10^3/uL (1.5-8.5); NEUTROPHILS % 61.0 % (36.0-66.0); PLATELET COUNT, AUTOMATED 244 10^3/uL (150-450)
[2024-12-20] MEDS ORDERED: MIRA3350 PO (06:22)
[2024-12-20] MEDS ORDERED: COLA100C5 PO (06:22)
[2024-12-20] MEDS ORDERED: HYDR25SU61 PR (06:22)
[2024-12-20 06:29] VITALS: BP 109/67; TEMP 97.4; O2SAT 97
[2024-12-20 06:46] LABS: ALT/SGPT 10 U/L (7.0-40); AST/SGOT 16 U/L (<34); CALCIUM LEVEL 9.3 MG/DL (8.5-10.1); CARBON DIOXIDE LEVEL 28 MMOL/L (20-31); CHLORIDE LEVEL 106 MMOL/L (98-107); CREATININE FOR GFR 0.67 MG/DL (0.55-1.30); GLOMERULAR FILTRATION RATE > 90.0 (>60); POTASSIUM SERUM 3.8 MMOL/L (3.5-5.1); SODIUM LEVEL 142 MMOL/L (136-145)
== END 2024-12-20 06:31 | disposition home or self-care (01) ==
LOC: M ED 04:42
DX: K64.9 Unspecified hemorrhoids (principal)